=== PATIENT | female | born 1950 | race Caucasian/White ===

== ENCOUNTER 2016-04-23 07:18 | Inpatient (IN) | payer MEDICARE, OTHER ==
--- NOTE | 2016-04-12 21:49 | HP ---
PREOPERATIVE HISTORY AND PHYSICAL: DATE OF ADMISSION: This patient is scheduled for AA admission by Dr. Sebastian, 04/23/16. DATE OF PREOPERATIVE HISTORY AND PHYSICAL EXAMINATION: , 04/11/16. ATTENDING SURGEON: Dr. Talon Sebastian (dictated by Miracle Abdullahi NP). CHIEF COMPLAINT: Morbid obesity. HISTORY OF PRESENT ILLNESS: The patient is a 65-year-old female with a body mass index of 47.5 and comorbidities of type 2 diabetes, hypertension, hyperlipidemia, GERD, osteoarthritis with chronic neck and shoulder pain. She has a longstanding history of obesity and is seeking bariatric surgery as a more permanent solution to her obesity and related comorbidities. She has completed medically supervised weight loss as well as the preoperative diagnostic testing and evaluations and has been deemed an appropriate candidate by Dr. Sebastian to proceed with laparoscopic Paul-en-Y gastric bypass. Dr. Sebastian discussed the nature of the surgical procedure, the relevant risks, benefits, and alternatives and today, I reviewed the typical hospitalization and expected postoperative care and recovery including compliance with the stages of the postoperative diet, exercise, vitamin and mineral supplementation , and followup visits at [facility] and [facility]. The patient has had a chance to ask questions and stated that she understands the information and is satisfied with the answers given to her questions. She will sign surgical consent on the day of surgery. PAST MEDICAL HISTORY: Significant for type 2 diabetes, hypertension, GERD, osteoarthritis with chronic neck and shoulder pain, hyperlipidemia and recurrent diverticulitis and obstructive sleep apnea that is untreated at this time. PAST SURGICAL HISTORY: 1. Hysterectomy, 1996. 2. Laparoscopic cholecystectomy, 2003. 3. Bladder surgery, 2008 and 2012. 4. Right carpal tunnel release, 2013. 5. Bilateral cataract extraction, 2015. 6. Left knee arthroscopy, 2008. MEDICATIONS: 1. Gabapentin 300 mg t.i.d. 2. TriCor 145 mg daily in the morning. 3. Sertraline 150 mg p.o. daily in the morning. 4. Lisinopril/hydrochlorothiazide 20/25 mg p.o. daily in the morning. 5. Pantoprazole 40 mg p.o. daily in the morning. 6. Bupropion 300 mg p.o. daily. 7. Myrbetriq 25 mg daily in the morning. 8. Oxybutynin 10 mg p.o. b.i.d. 9. Crestor 20 mg p.o. daily. 10. Bydureon 2 mg injection weekly on Wednesdays and the patient was instructed by her primary care provider to hold that medication as of 04/08/16 while she is on the preoperative diet; she also takes acetaminophen 650 mg as needed for arthritis pain. 11. Vitamin B12 500 mcg daily. 12. Vitamin D3 1000 International Units daily. 13. Flintstones vitamin with calcium daily. ALLERGIES: She has multiple medication allergies. KEFLEX, ZITHROMAX, PENICILLIN, ROCEPHIN, BACTRIM, and SULFA have caused either hives or vomiting. She has also had unspecified reactions to ELAVIL, OXYCODONE, CHANTIX, and LATEX , but she states that she has tolerated morphine. FAMILY HISTORY: Father had a history of Crohn's disease and subsequently colon cancer. No known anesthesia complications, bleeding tendencies, or clotting disorders in the family. SOCIAL HISTORY: She is . She rarely drinks alcohol. She quit smoking, 02/26/16, after smoking 1 to 2 packs of cigarettes a day since age 16. She has been disabled since 2003. 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 REVIEW OF SYSTEMS: She denies any history of myocardial infarction; she denies any chest pain or pressure or palpitations; she states that she had a DVT in the right upper extremity after the right carpal tunnel release in 2013; she denies any history of pulmonary embolism. She quit smoking on 02/26/16; she denies any recent upper respiratory infection. She denies any previous anesthesia complications. She has a history of GERD and she underwent a preoperative upper endoscopy, which revealed antral gastritis and bile reflux without anatomic abnormalities. She has a history of benign colon polyps and recurrent diverticulitis. She denies any current diarrhea or constipation and is typically on a fiber supplement. She denies any dysuria. She is a type 2 diabetic and her fingerstick blood sugar typically in the morning is 100. She was diagnosed with obstructive sleep apnea, but did not follow up and has not been on CPAP and Dr. Sebastian is aware. She denies any bleeding tendencies and has never received a blood transfusion. PHYSICAL EXAMINATION GENERAL SURVEY: The patient is a 65-year-old morbidly obese female, in no acute distress. VITAL SIGNS: Height 63 inches, weight 268 pounds, body mass index 47.5, blood pressure 138/86, pulse 76 and regular, respiratory rate 20, temperature 98.4 tympanic. HEENT: Benign. NECK: Supple. No cervical lymphadenopathy. No carotid bruits. Trachea is midline. Neck circumference 68 inches. LUNGS: Breath sounds bilaterally clear and equal. HEART: Regular rate and rhythm. No murmurs or rubs appreciated. ABDOMEN: Obese with active bowel sounds. Soft and nondistended. Multiple well - healed surgical scars. No obvious masses, organomegaly, or ventral hernias, but exam is limited by body habitus. EXTREMITIES: Warm without edema or skin ulcerations. PELVIC AND RECTAL: Exams deferred. NEUROLOGIC: Alert and oriented x3. Steady gait. SKIN: Warm, dry, intact. IMPRESSION: Morbid obesity. PLAN: AA admission to Dr. Sebastian' service on 04/23/16, for laparoscopic Paul-en-Y gastric bypass. CC: Dr. Hudson* GISSEL ABDULLAHI, FOOD COUNSELOR [id number]/[facility] #: [id number] MTDLevon
[~2016-04-23 07:18] MED LIST: Buffered Lidocaine 1% SYR 3ML* 3 ML/SYR SYRINGE INTRADERM ONE
[2016-04-23] MEDS ORDERED: Ciprofloxacin 400MG IVPREMIX(* 400 MG/200 ML BAG ONE (08:14)
[2016-04-23] MEDS ORDERED: Clindamycin 900 MG IVPREMIX(* 900 MG/50 ML SDV IV ONE (08:14)
[2016-04-23] MEDS ORDERED: Buffered Lidocaine 1% SYR 3ML* 3 ML/SYR SYRINGE ONE (08:15)
[2016-04-23] MEDS ORDERED: Heparin VIAL(*) 5000 UNITS/ML VIAL (FIVE THOUSAND) ONE (08:23)
[2016-04-23] MEDS ORDERED: fentaNYL* 50 MCG/ML 2 ML VIAL (100 MCG VIAL) ONE ×5 (10:20→16:01)
[2016-04-23] MEDS ORDERED: Midazolam* 1 MG/ML 2 ML VIAL (2 MG) ONE ×2 (10:20→10:55)
[2016-04-23] MEDS ORDERED: Methylene Blue 1%* 10 ML VIAL ONE (10:23)
[2016-04-23] MEDS ORDERED: Bupivacaine 0.5% W/EPI SDV* 30 ML VIAL ONE (10:24)
[2016-04-23] MEDS ORDERED: Cisatracurium* 2 MG/ML MDV 10 ML ONE (10:55)
[2016-04-23] MEDS ORDERED: Propofol* 10 MG/ML 20 ML BTL IV PUSH ONE (11:19)
[2016-04-23] MEDS ORDERED: Lidocaine 2% MPF* 2 ML VIAL ONE (11:19)
[2016-04-23] MEDS ORDERED: Succinylcholine* 20 MG/ML 10 ML VIAL ONE (11:19)
[2016-04-23] MEDS ORDERED: Famotidine IV* 10 MG/ML 2 ML (20 mg) ONE (11:19)
[2016-04-23] MEDS ORDERED: Dexamethasone IV* 4 MG/ML 1 ML (4 MG) ONE (11:19)
[2016-04-23] MEDS ORDERED: Ondansetron INJ* 2 MG/ML VIAL IV PRN ×2 (11:47→20:07)
[2016-04-23] MEDS ORDERED: DiMENhydriNATE IV* 50 MG/ML VIAL IV PUSH PRN (11:47)
[2016-04-23] MEDS ORDERED: PROCHLORPERAZINE INJ 5 MG/ML 2 ML VIAL IV PRN (11:47)
[2016-04-23] MEDS ORDERED: Desflurane* 240 ML INH ONE (12:41)
[2016-04-23] MEDS ORDERED: Ondansetron INJ* 2 MG/ML VIAL ONE (13:32)
[2016-04-23] MEDS ORDERED: HYDROmorphone INJ* 1 MG/ML CARPUJECT SYRINGE IV PRN (13:44)
[2016-04-23] MEDS ORDERED: HYDROmorphone INJ* 1 MG/ML CARPUJECT SYRINGE ONE (14:00)
[2016-04-23] MEDS: fentaNYL* 50 MCG/ML 2 ML VIAL (100 MCG VIAL) IV PRN ×5 (14:03→16:02)
[2016-04-23] MEDS: HYDROmorphone INJ* 1 MG/ML CARPUJECT SYRINGE IV PRN ×7 (14:10→22:52)
[2016-04-23] MEDS ORDERED: DiMENhydriNATE IV* 50 MG/ML VIAL ONE (15:20)
[2016-04-23] MEDS: Heparin VIAL(*) 5000 UNITS/ML VIAL (FIVE THOUSAND) SUBCUT SCH ×2 (16:49→22:40)
[2016-04-23] MEDS: Ketorolac INJ* 30 MG/ML 1 ML VIAL IV PRN (16:59)
[2016-04-23] MEDS: Nicotine Patch Removal NOTE PATCH OFF SCH (22:40)
[2016-04-24] MEDS: Heparin VIAL(*) 5000 UNITS/ML VIAL (FIVE THOUSAND) SUBCUT SCH ×3 (05:32→21:52)
[2016-04-24] MEDS: Ketorolac INJ* 30 MG/ML 1 ML VIAL IV PRN ×2 (07:53→14:22)
[2016-04-24] MEDS: Nicotine PATCH 21 MG/24 HR* PATCH TRANSDERM SCH (08:41)
[2016-04-24] MEDS ORDERED: Pantoprazole IV* 40 MG IV SCH (09:00)
[2016-04-24] MEDS: HYDROmorphone INJ* 1 MG/ML CARPUJECT SYRINGE IV PRN ×4 (11:22→21:54)
--- NOTE | 2016-04-24 12:01 | PN ---
Progress Note - Progress Note SOAP: Subjective: Minimal pain. No N/V. Has been walking. Objective: AVSS NAD Abd: incis c/d/i; RAI ss drainage. Soft. Minimal tenderness. Laboratory Results - last 24 hr 04/23/16 04/23/16 15:34 21:31 POC Glucose (mg/dL) 137 H 151 H Assessment: POD#1 s/p LRYGB. Doing well. Plan: Adv diet. D/c rendon. Ambulate. Nutrition consult. Home in AM if doing well. Remove RAI prior to d/c.
[2016-04-24] MEDS: D5W 1/2 NS KCl 20 Meq 1000 ML* 1,000 ML IV SCH ×2 (12:47→21:49)
--- NOTE | 2016-04-24 12:50 | PN ---
Progress Note - Progress Note SOAP: Subjective: Feeling well, no complaints ambulating rendon removed this am- has not yet urinated since no flatus or BM started joey clears this am- tolerating sips of clear liq denies f/c, cp, sob, n/v Objective: A&Ox3, NAD, VSS, afebrile, on 5L O2 via NC Heart: RRR no m/r/g Lungs: Poor aeration throughout, some wheezes abd: Soft, non-distended, obese hypoactive BS incisions covered with dressings, not removed RAI x1 intact to LUQ, serosang drainage in bulb moderate tenderness to palpation in epigastrium, LUQ no guarding Extr: calves NT to palpation, SCDs in place Vital Signs Temp 98.4 F 04/24/16 12:45 Pulse 81 04/24/16 12:45 Resp 18 04/24/16 12:45 BP 127/59 04/24/16 12:45 Pulse Ox 94 04/24/16 12:45 Intake & Output 04/23/16 04/24/16 18:59 06:59 Intake Total 2700 1897 Output Total 55 490 Balance 2645 1407 Weight 271 lb 6.4 oz Intake: IV Fluids 2700 1897 LR 1897 Lactated Ringer's 2700 Oral 0 0 Output: RAI #1 55 15 Rendon 475 Assessment/ Plan: Pt is a 65 yo F POD#1 S/P Laparoscopic RYGB who is currently doing well. O2 sats- encourage incentive spirometer use, ambulation titrate off O2 via NC will discuss sleep study report with (records coming from ) Hx of untreated sleep apnea capnography while asleep, pulse ox on when awake joey clears ambulate begin PO: Mybetriq Oxybutinin Wellbutrin Sertraline omeprazole Hold gabapentin for now con't FSBGs poss D/C tomorrow
[2016-04-24] MEDS ORDERED: Mirabegron (NF) 25 MG TAB PO SCH (13:00)
[2016-04-24] MEDS: Omeprazole CAP* 20 MG PO SCH (13:04)
[2016-04-24] MEDS: Oxybutynin XL TAB* 5 MG PO SCH (13:04)
[2016-04-24] MEDS: Sertraline* 100 MG TAB PO SCH (13:05)
[2016-04-24] MEDS: BuPROPion XL* 150 MG TAB.XL PO SCH (14:56)
[2016-04-24 18:19] LABS: Hematocrit 33 % (35-47); Hemoglobin 10.8 g/dl (12.0-16.0); Mean Corpuscular HGB Conc 33 g/dl (31-36); Mean Corpuscular Hemoglobin 30 pg (27-31); Mean Corpuscular Volume 91 fL (80-97); Mean Platelet Volume 10 um3 (7.4-10.4); Red Blood Count 3.65 10^6/ul (4.0-5.4); Red Cell Distribution Width 14 % (10.5-15); White Blood Count 9.9 10^3/ul (3.5-10.8)
[2016-04-24 18:36] LABS: Calcium 9.2 mg/dL (8.6-10.3); EGFR African American 58.9 (>60); EGFR Non-African American 45.8 (>60); Potassium 3.6 mmol/L (3.5-5.0)
[2016-04-24] MEDS ORDERED: ESTRADIOL VAG CM VAGINAL SCH (21:00)
[2016-04-24] MEDS: Nicotine Patch Removal NOTE PATCH OFF SCH (22:16)
[2016-04-25] MEDS: HYDROmorphone INJ* 1 MG/ML CARPUJECT SYRINGE IV PRN ×2 (01:08→06:01)
--- NOTE | 2016-04-25 02:57 | OP ---
OPERATIVE REPORT: DATE OF OPERATION: 04/23/16 - SSU 352-01 DATE OF : 54 SURGEON: Talon Sebastian MD HOME SUPPORT WORKER: Dr. Segura. ANESTHESIOLOGIST: Dr. Lau. ANESTHESIA: General endotracheal. PRE-OP DIAGNOSIS: Morbid obesity. POST-OP DIAGNOSIS: Morbid obesity. OPERATIVE PROCEDURE: Laparoscopic Paul-en-Y gastric bypass. ESTIMATED BLOOD LOSS: Minimal. IV FLUID: Crystalloid. SPECIMEN: None . DRAINS: A 10 mm Chidi-Negron. COMPLICATIONS: None. COUNTS: Instrument, needle and sponge counts were correct. DESCRIPTION OF PROCEDURE: The patient was brought to the operating room, placed on table supine. Sequential compression devices were placed on both lower extremities. General anesthesia was administered. A Mcdaniel catheter was placed. The abdomen was prepped and draped in the usual sterile fashion. Appropriate antibiotics were administered. A time-out was performed. Local anesthetic was infiltrated into the skin and soft tissue prior to making each incision. Entry to the abdomen was through a left upper quadrant incision accommodating a 12 mm optical trocar. After accessing the peritoneal cavity, carbon dioxide was insufflated to a pressure of 15 mmHg. Under direct visualization, a 12 mm bladeless trocar was placed in the right upper quadrant, also in the supraumbilical midline. The 5 mm bladeless trocars were placed in the right upper quadrant medially and left upper quadrant laterally. A Ofelia liver retractor was placed percutaneously in the subxiphoid position and used to elevate the left lobe of the liver. Adhesiolysis was performed freeing omentum from the anterior abdominal wall. The patient was noted to have previous umbilical hernia mesh in place. After freeing, the omentum was retracted superiorly. The omentum was split down the midline in order to create a path for the Paul limb. The gastric pouch was fashioned first by dissecting along the left richelle of the diaphragm to expose this. Then a perigastric dissection was undertaken in the lesser curvature in order to enter the lesser sac and then with several firings of the Endo YRIS stapler with glaser cartridges, a gastric pouch was created of approximately 20 mL volume. After assuring hemostasis on the staple lines, the ligament of Treitz was identified. The bowel was measured out 40 cm and it was tacked to the left lateral edge of the gastric pouch with interrupted 3-0 silk sutures. YRIS stapled anastomosis was performed to create the gastrojejunostomy in the antecolic, antegastric fashion. The common gastroenterotomy was closed with 3-0 Maxon running over a 36-Ukrainian gastric lavage tube. Lastly, the loop of bowel was divided to the left side of the anastomosis to complete the gastrojejunostomy. The anastomosis was then tested with methylene blue dye solution, instilled through the orogastric tube and no leak was identified. The Paul limb was then measured out for 75 cm at which point, a functional end- to-side jejunojejunostomy was created with the Endo YRIS stapler with a glaser 60 mm cartridge. Again, the common enterotomy was run close with 3-0 Maxon. A 3- 0 silk was used in running locking fashion to close the mesenteric defect. A 7 mm Chidi-Negron drain was placed into the abdominal cavity and withdrawn through the left upper quadrant 5-mm trocar site. The drain was placed posterior and to the left side of the gastrojejunal anastomosis and it was sutured to the skin with 3-0 Surgipro. It was placed to suction bulb. All trocars were removed under direct visualization. Carbon dioxide was released. The skin was closed with mark and dressings were applied. The patient was extubated uneventfully and transferred to the recovery room in stable condition. CC: Agueda Hudson MD* [id number]/[facility] #: [id number] DANIKA
[2016-04-25] MEDS: Heparin VIAL(*) 5000 UNITS/ML VIAL (FIVE THOUSAND) SUBCUT SCH (06:01)
[2016-04-25] MEDS: D5W 1/2 NS KCl 20 Meq 1000 ML* 1,000 ML IV SCH (07:10)
[2016-04-25 07:37] VITALS: BP 128/64
[2016-04-25 07:51] LABS: Hematocrit 32 % (35-47); Hemoglobin 10.5 g/dl (12.0-16.0); Mean Corpuscular HGB Conc 33 g/dl (31-36); Mean Corpuscular Hemoglobin 31 pg (27-31); Mean Corpuscular Volume 92 fL (80-97); Mean Platelet Volume 10 um3 (7.4-10.4); Red Blood Count 3.44 10^6/ul (4.0-5.4); Red Cell Distribution Width 14 % (10.5-15); White Blood Count 10.8 10^3/ul (3.5-10.8)
[2016-04-25 08:06] LABS: BUN/Creatinine Ratio 18.4 (8-20); Calcium 8.8 mg/dL (8.6-10.3); EGFR African American 69.6 (>60); EGFR Non-African American 54.1 (>60)
[2016-04-25] MEDS: Omeprazole CAP* 20 MG PO SCH ×2 (09:19→09:37)
[2016-04-25] MEDS: BuPROPion XL* 150 MG TAB.XL PO SCH ×2 (09:19→09:37)
[2016-04-25] MEDS: Sertraline* 100 MG TAB PO SCH ×2 (09:20→09:37)
[2016-04-25] MEDS: Oxybutynin XL TAB* 5 MG PO SCH ×2 (09:20→09:38)
[2016-04-25] MEDS: Nicotine PATCH 21 MG/24 HR* PATCH TRANSDERM SCH (09:38)
[2016-04-25] MEDS ORDERED: HYDROcodone/ACET. 7.5/325 LIQ* 15 ML UDC PO PRN (09:49)
--- NOTE | 2016-04-25 09:57 | PN ---
Progress Note - Progress Note Note: S: POD #2. Doing well (seen earlier by Dr. Sebastian). Has only had Dilaudid IV for pain (though thinks she will do well with her usual Gabapentin). Sylvia joey clears. No N/V or regurg. O: Tmax 100.2 Vital Signs - 8 hr 04/25/16 04/25/16 04/25/16 02:08 03:53 06:01 Temperature 99.9 F Pulse Rate 90 Respiratory 18 20 18 Rate Blood Pressure 152/85 (mmHg) O2 Sat by Pulse 94 Oximetry 04/25/16 04/25/16 04/25/16 07:01 07:28 08:00 Temperature 97.8 F Pulse Rate 85 Respiratory 18 18 18 Rate Blood Pressure 128/64 (mmHg) O2 Sat by Pulse 95 Oximetry Intake and Output Last 24 Hours 04/23/16 04/24/16 04/25/16 04/26/16 06:59 06:59 06:59 06:59 Intake Total 4597 4413 Output Total 545 1343 10 Balance 4052 3070 -10 Weight 271 lb 6.4 oz Intake: IV Fluids 4597 3432 D5W 1/2 NS 20 meq KCL 1940 LR 1897 1492 Lactated Ringer's 2700 IVPB 501 LR 501 Oral 0 480 Output: RAI #1 70 93 10 Urine 825 Mcdaniel 475 425 Heart: reg; distant heart tones Lungs: clear Abd: +BS; Lap incisions ok; RAI: serosang (d/c'd w/o incident; DSD placed) Labs reviewed A/P: s/p lap RYGB, doing well overall. Will be able to go home later today if pain is controlled w/ po meds. Instructions reviewed. Office f/u 1 wk.
[2016-04-25] MEDS ORDERED: Gabapentin CAP(*) 300 MG PO SCH (10:00)
--- NOTE | 2016-04-26 03:54 | DS ---
DISCHARGE SUMMARY: DATE OF ADMISSION: 04/23/16 DATE OF DISCHARGE: 04/25/16 ATTENDING SURGEON: Dr. Talon Sebastian. HOSPITAL COURSE: Please refer to admission history and physical for admission details. The patient was taken to the operating room on 04/23/16 and underwent laparoscopic Paul-en-Y gastric bypass. Surgery was otherwise uneventful. A Chidi-Negron drain was left in place. Postoperatively, her course was notable for low oxygen saturations, which had improved significantly by the morning of discharge (normal on room air). She also had low urine output requiring IV fluid bolus. As of the morning of discharge, her pain was controlled, though only on IV Dilaudid (she did not have any orders yet for oral analgesics) and she is tolerating bariatric clear liquids well. She was seen earlier by Dr. Sebastian. PHYSICAL EXAMINATION: As of the morning of discharge, T-max 100.2, current temperature 97.8, blood pressure 128/64, pulse 85, respirations 18, room air saturation 91% to 92%. General: Well-nourished, morbidly obese female, in no acute distress. She appears comfortable. Heart: Regular rate and rhythm, though heart tones are distant. Lungs: Clear to auscultation. No rales or wheezes. Abdomen: Laparoscopic incision sites look fine. Bowel sounds are present. Abdomen: Soft with tenderness primarily in the left upper quadrant. The remainder is nontender. Chidi-Negron drain with serosanguineous drainage. This was removed without incidence and a dry sterile dressing placed. ASSESSMENT: Status post laparoscopic Paul-en-Y gastric bypass, doing well. PLAN: Home today pending adequate pain control with oral analgesics and resumption of her usual gabapentin. She has a followup with our office on 05/[address] Sebastian. KE PACHECO CC: Harpreet Nettles* [id number]/[facility] #: [id number] MTDD
== END 2016-04-25 11:50 | disposition home or self-care (01) | DRG 621 ==
LOC: AA 07:18 → SSU 16:32
PROVIDERS: ADMIT Surgery; ATTEND Surgery
PROC: 0D164ZA Bypass Stomach to Jejunum, Percutaneous Endoscopic Approach (ICD-10-PCS; principal; 2016-04-23 09:30)
DX: E66.01 Morbid (severe) obesity due to excess calories (principal); I10 Essential (primary) hypertension; E11.9 Type 2 diabetes mellitus without complications; E78.5 Hyperlipidemia, unspecified; K21.9 Gastro-esophageal reflux disease without esophagitis; M19.90 Unspecified osteoarthritis, unspecified site; G89.29 Other chronic pain; M54.2 Cervicalgia; M25.519 Pain in unspecified shoulder; G47.33 Obstructive sleep apnea (adult) (pediatric); Z68.42 Body mass index [BMI] 45.0-49.9, adult; Z90.710 Acquired absence of both cervix and uterus; Z98.42 Cataract extraction status, left eye; Z98.41 Cataract extraction status, right eye; Z88.0 Allergy status to penicillin; Z88.1 Allergy status to other antibiotic agents; Z88.2 Allergy status to sulfonamides; Z88.8 Allergy status to other drugs, medicaments and biological substances; Z88.5 Allergy status to narcotic agent; Z91.040 Latex allergy status; Z80.0 Family history of malignant neoplasm of digestive organs; Z87.891 Personal history of nicotine dependence
CPT/HCPCS: 36415; 80048; 85025; 94760; A9270-GY; C1776; J0330; J0744; J1100; J1170; J1240; J1644; J1885; J2250; J2405; J2704; J3010

== ENCOUNTER 2016-07-14 09:48 | Emergency (ER) | payer MEDICARE, OTHER ==
[2016-07-14 11:01] VITALS: BP 154/82
--- NOTE | 2016-07-14 11:40 | UC ---
Lower Extremity/Ankle HPI - HPI Summary HPI Summary: got a bug bite yesterday on her left ankle, has redness surrounding that. Then this am had redness and excruciating pain in her left great toe radiating to her left second toe. No hx gout. No fever. Is on gabapentin for chronic knee and hip pain. Has multiple antibiotic allergies. - History of Current Complaint Chief Complaint: UCLowerExtremity Stated Complaint: LEFT FOOT Time Seen by Provider: 07/14/16 11:37 Hx Obtained From: Patient Hx Last Menstrual Period: about age 40s Onset/Duration: Gradual Onset, Lasting Days, Still Present Severity Initially: Moderate Severity Currently: Severe Pain Intensity: 8 Pain Scale Used: 0-10 Numeric Aggravating Factor(s): Standing, Ambulation Alleviating Factor(s): Nothing Able to Bear Weight: Yes - with pain - Risk Factors Gout Risk Factors: Diabetes, Hypertension, Obesity Septic Arthritis Risk Factor: Negative - Allergies/Home Medications Allergies/Adverse Reactions: Allergies Allergy/AdvReac Type Severity Reaction Status Date / Time Amitriptyline [From Elavil] Allergy Unknown Rash And Verified 04/23/16 08:19 Itching Azithromycin [From Zithromax] Allergy Unknown Vomiting Verified 04/23/16 08:19 Ceftriaxone [From Rocephin] Allergy Unknown Rash And Verified 04/23/16 08:19 Itching Cephalexin [From Keflex] Allergy Unknown Rash And Verified 04/23/16 08:19 Itching Darifenacin Allergy Unknown Rash And Verified 04/23/16 08:19 [From Enablex 15mg] Itching Latex Allergy Unknown Rash Verified 04/23/16 08:19 Nitrofurantoin Allergy Unknown Rash And Verified 04/23/16 08:19 Itching Oxycodone [From Endocet] Allergy Unknown Vomiting Verified 04/23/16 08:19 Penicillins Allergy Unknown vomiting, Verified 04/23/16 08:19 fever Varenicline [From Chantix] Allergy Unknown Rash from Verified 04/23/16 08:19 head to toe, Nausea, Vomiting Methenamine Allergy Rash Verified 04/23/16 08:19 Sulfa Antibiotics Allergy Rash Verified 07/14/16 10:46 Sulfamethoxazole Allergy Rash on Verified 04/23/16 08:19 w/Trimethoprim hands [From Bactrim] Home Medications: Home Medications Calcium Citrate TAB* [Citracal TAB*] 1 tab PO BID 07/14/16 [History Confirmed ] PMH/Surg Hx/FS Hx/Imm Hx Endocrine History Of: Reports: Diabetes Cardiovascular History Of: Reports: Cardiac Disorders - ANGINA, Hypertension Denies: Pacemaker/ICD Respiratory History Of: Denies: COPD, Asthma GI/ History Of: Denies: Renal Disease Psychological History Of: Reports: Anxiety - CONTROL WITH MEDS, Depression - Surgical History Surgical History: Yes Surgery Procedure, Year, and Place: 1996 hysterectomy [facility]. 2010 colecystectomy [facility]. 2008 left knee surgery, [facility]. 01/2009 Bladder repair. with sling. [facility]. 02/2009 BLADDER SLING REMOVED [facility]. 2011 & 2012 BLADDER SURGERY [place]. RIGHT ULNAR NERVE LESION, RIGHT CARPAL DACIA, 12/14/13. [facility] CATARACT[facility]. Right ARM BLOOD CLOT. Gastric Bipass Surgery 04/23/16 - Family History Known Family History: Positive: Other - no known hx gout - Social History Lives: With Family Alcohol Use: Rare Alcohol Amount: FEW DRINKS/YEAR Substance Use Type: None Smoking Status (MU): Former Smoker Type: Cigarettes Amount Used/How Often: 1PPD 45 YRS Length of Time of Smoking/Using Tobacco: 45 YEARS Have You Smoked in the Last Year: Yes When Did the Patient Quit Smoking/Using Tobacco: 02/26/2016 Household Exposure Type: Cigarettes - Immunization History Most Recent Influenza Vaccination: 2016 Most Recent Tetanus Shot: UNKNOWN Most Recent Pneumonia Vaccination: 2016 Review of Systems Constitutional: Negative Skin: Other - redness left great toe and swelling and redness surrounding insect bite, left lat malleolus Motor: Negative Neurovascular: Negative Musculoskeletal: Arthralgia Neurological: Negative Psychological: Negative All Other Systems Reviewed And Are Negative: Yes Physical Exam Triage Information Reviewed: Yes Appearance: Ill-Appearing, Pain Distress, Obese Vital Signs: Initial Vital Signs Temp 98.2 F 07/14/16 10:54 Pulse 74 07/14/16 10:54 Resp 16 07/14/16 10:54 BP 154/82 07/14/16 10:54 Pulse Ox 99 07/14/16 10:54 elevated BP noted Vital Signs Reviewed: Yes Eyes: Positive: Conjunctiva Clear ENT: Positive: Normal ENT inspection Neck: Positive: Supple Respiratory: Positive: No respiratory distress Cardiovascular: Positive: RRR, Pulses Normal, Brisk Capillary Refill Musculoskeletal: Positive: Strength Intact, ROM Intact, Other: - painful even to lightly touch left great toe. Neurological: Positive: Alert, Muscle Tone Normal Psychological Exam: Normal Skin: Positive: Other - insect bite left lat malleolus with 1cm surrounding redness, faint redness left great toe but not on skin between ankle and left great toe. Swelling left great toe and foot, no swelling or bony tenderness of left ankle Lower Extremity Course/Dx - Course Course Of Treatment: diff dx cellulitis vs gout. Will treat for both. Pt states she can take ibuprofen despite recent gastric bypass surg so will try indocin for pain. Multiple allergies and hx DM noted. Pt states DM is better now after the bypass surg. Will give indocin and doxycylcine. Pt denies possibility of a tick bite. States she was bitten while doing laundry indoors. Advise definite follow up in 2 days. - Differential Dx/Diagnosis Differential Diagnosis/HQI/PQRI: Arthritis, Cellulitis, Gout, Infection, Sprain , Strain Provider Diagnoses: cellulitis. acute gout Discharge - Discharge Plan Condition: Stable Disposition: HOME Prescriptions: DOXYcycline CAP(*) [DOXYcycline 100MG CAP(*)] 100 mg PO BID #20 cap Indomethacin CAP* [Indocin CAP*] 50 mg PO TID PRN #30 cap PRN Reason: Pain Patient Education Materials: Cellulitis (ED), Low Purine Diet (ED), Gout (ED) Referrals: Agueda Hudson MD [Primary Care Provider] - 2 Days (regarding today's visit and your elevated blood pressure )
== END 2016-07-14 12:20 | disposition home or self-care (01) ==
LOC: UCCORT 09:48
DX: L03.116 Cellulitis of left lower limb (principal); M10.072 Idiopathic gout, left ankle and foot; E66.9 Obesity, unspecified; F41.9 Anxiety disorder, unspecified; Z88.1 Allergy status to other antibiotic agents; Z88.0 Allergy status to penicillin; Z88.2 Allergy status to sulfonamides; Z88.8 Allergy status to other drugs, medicaments and biological substances; Z90.49 Acquired absence of other specified parts of digestive tract; Z98.84 Bariatric surgery status; Z98.42 Cataract extraction status, left eye; Z98.41 Cataract extraction status, right eye; Z87.891 Personal history of nicotine dependence
CPT/HCPCS: 99212; G0463

== ENCOUNTER 2016-09-01 12:05 | Inpatient (IN) | payer MEDICARE, OTHER ==
[2016-09-01] MEDS ORDERED: Ondansetron INJ* 2 MG/ML VIAL IV ONE ×3 (12:33→14:17)
[2016-09-01] MEDS ORDERED: Morphine INJ* 4 MG/ML 1 ML SYRINGE IV ONE ×2 (12:58→15:42)
[2016-09-01] MEDS: NS 0.9% 1000 ML* 2,000 ML IV ONE ×2 (13:05→14:11)
[2016-09-01 13:35] LABS: Hematocrit 44 % (35-47); Hemoglobin 14.5 g/dl (12.0-16.0); Mean Corpuscular HGB Conc 33 g/dl (31-36); Mean Corpuscular Hemoglobin 30 pg (27-31); Mean Corpuscular Volume 90 fL (80-97); Mean Platelet Volume 11 um3 (7.4-10.4); Red Blood Count 4.92 10^6/ul (4.0-5.4); Red Cell Distribution Width 14 % (10.5-15); White Blood Count 17.5 10^3/ul (3.5-10.8)
[2016-09-01 13:39] LABS: Albumin 3.4 g/dL (3.2-5.2); BUN/Creatinine Ratio 14.8 (8-20); C Reactive Protein 26.65 mg/L (< 5.00); Calcium 9.4 mg/dL (8.6-10.3); EGFR African American 127.4 (>60); EGFR Non-African American 99.1 (>60); Globulin 4.1 g/dL (2-4); Magnesium 1.6 mg/dL (1.9-2.7); Total Bilirubin 0.5 mg/dL (0.2-1.0); Total Protein 7.5 g/dL (6.4-8.9)
[2016-09-01 13:41] LABS: Troponin I 0.01 ng/mL (<0.04)
[2016-09-01 13:43] LABS: Potassium 2.7 mmol/L (3.5-5.0)
[2016-09-01 14:15] LABS: TSH (Thyroid Stimulating Horm) 1.04 mcIU/mL (0.34-5.60)
[2016-09-01 14:20] LABS: Urine Bacteria 1+ (Absent); Urine Bilirubin Negative (Negative); Urine Glucose Negative (Negative); Urine Nitrite Negative (Negative)
[2016-09-01] MEDS ORDERED: Iohexol 300* (CONTRAST) 10 ML SDV IV ONE (14:39)
--- NOTE | 2016-09-01 15:39 | RAD ---
INDICATION: Abdominal pain, history of gastric bypass. COMPARISON: Comparison is made with a prior CT of the abdomen and pelvis from August 16, 2016. TECHNIQUE: A CT scan of the abdomen and pelvis was performed with intravenous and oral contrast following intravenous injection of 133 ml of Omnipaque 300 nonionic contrast. Contiguous axial sections were obtained from the lung bases through the symphysis pubis. Images were reconstructed in the coronal and sagittal planes. FINDINGS: The lung bases are clear. No pleural effusion is present. The liver is mildly enlarged and decreased in attenuation consistent with fatty infiltration. The patient is status post cholecystectomy. The spleen is within normal limits in size. The pancreas appears to be within normal limits. The kidneys and adrenal glands are normal in size. No hydronephrosis is seen. There is a 2.5 cm exophytic left renal cyst arising from the midportion of the kidney. In addition there is a small 0.5 cm fatty density lesion arising from the upper pole of the left kidney most consistent with a small angiomyolipoma. These are unchanged from the prior study. The aorta is normal in caliber with moderate calcific plaque present. No significant enlarged retroperitoneal lymph nodes are seen. The patient is status post Paul-en-Y gastric bypass surgery. The excluded stomach is nondistended. The jejunojejunostomy appears grossly within normal limits. The small bowel and colon appear nondistended. The appendix appears to be within normal limits. In the left upper quadrant there is focal thickening of the wall of the distal transverse colon with stranding in the mesenteric fat and associated diverticuli most consistent with diverticulitis. This appears slightly proximal to the area noted on the prior exam although may represent the same area with a mobile colon. The inflammatory change appears slightly more prominent than on the prior study. No abscess is seen. Again note is made of thickening of the wall of the sigmoid colon as noted previously recommend colonoscopy for further evaluation. The patient is status post hysterectomy. No free intraperitoneal air or fluid is seen. No significant focal osseous abnormality is seen. IMPRESSION: 1. FINDINGS MOST CONSISTENT WITH DIVERTICULITIS INVOLVING THE DISTAL TRANSVERSE COLON. THIS APPEARS SLIGHTLY MORE PROXIMAL TO THE REGION OF DIVERTICULITIS NOTED PREVIOUSLY ALTHOUGH MAY REPRESENT THE SAME AREA ASSUMING SLIGHT DIFFERENCES IN POSITIONING OF THE COLON. THIS APPEARS TO HAVE PROGRESSED SLIGHTLY FROM THE PRIOR STUDY. NO ABSCESS IS PRESENT. 2. THICKENING OF THE WALL OF THE SIGMOID COLON, UNCHANGED RECOMMEND COLONOSCOPY FOR FURTHER EVALUATION PREVIOUSLY NOTED. 3. MILD HEPATOMEGALY AND HEPATIC STEATOSIS. 4. STATUS POST GASTRIC BYPASS SURGERY, CHOLECYSTECTOMY AND HYSTERECTOMY.
[2016-09-01] MEDS ORDERED: metroNIDAZOLE IV 500 MG/100ML* 100 ML IVPB ONE (15:44)
--- NOTE | 2016-09-01 15:48 | ED ---
Vernon Veronica Janilya, scribed for Felipe Jenkins MD on 09/01/16 at 1245 . Abdominal Pain/Female - HPI Summary HPI Summary: A 65 y/o female came in to [facility] presenting w/ a gradual onset of constant lower abd pain starting Friday, 08/30. At times, severity rated 5/10, but when it is worst, it is rated above 10/10. She was referred here by Dr. Sebastian. Pt reports n/v/d, blood in stool of bright red color, fever, chills. This morning, her Sx started at 0300. PMHx gastric bypass in April, diverticulitis. - History of Current Complaint Chief Complaint: EDAbdPain Stated Complaint: VOMITING, PAIN, DIARRHEA Time Seen by Provider: 09/01/16 12:32 Hx Obtained From: Patient Hx Last Menstrual Period: about age 40s Onset/Duration: Gradual Onset, Lasting Days, Still Present Timing: Constant Severity Initially: Moderate Severity Currently: Moderate Pain Intensity: 8 Pain Scale Used: 0-10 Numeric Location: Other - lower abd pain Radiates: No Aggravating Factor(s): Nothing Alleviating Factor(s): Nothing Associated Signs and Symptoms: Positive: Nausea, Vomiting, Diarrhea Allergies/Adverse Reactions: Allergies Allergy/AdvReac Type Severity Reaction Status Date / Time Amitriptyline [From Elavil] Allergy Unknown Rash And Verified 08/16/16 13:51 Itching Azithromycin [From Zithromax] Allergy Unknown Vomiting Verified 08/16/16 13:51 Ceftriaxone [From Rocephin] Allergy Unknown Rash And Verified 08/16/16 13:51 Itching Cephalexin [From Keflex] Allergy Unknown Rash And Verified 08/16/16 13:51 Itching Darifenacin Allergy Unknown Rash And Verified 08/16/16 13:51 [From Enablex 15mg] Itching Latex Allergy Unknown Rash Verified 08/16/16 13:51 Nitrofurantoin Allergy Unknown Rash And Verified 08/16/16 13:51 Itching Oxycodone [From Endocet] Allergy Unknown Vomiting Verified 08/16/16 13:51 Penicillins Allergy Unknown vomiting, Verified 08/16/16 13:51 fever Varenicline [From Chantix] Allergy Unknown Rash from Verified 08/16/16 13:51 head to toe, Nausea, Vomiting Methenamine Allergy Rash Verified 08/16/16 13:51 Sulfa Antibiotics Allergy Rash Verified 08/16/16 13:51 Sulfamethoxazole Allergy Rash on Verified 08/16/16 13:51 w/Trimethoprim hands [From Bactrim] PMH/Surg Hx/FS Hx/Imm Hx Previously Healthy: Yes Endocrine/Hematology History: Denies: Hx Diabetes Cardiovascular History: Reports: Other Cardiovascular Problems/Disorders - CHOLESTEROL CONTROL WITH MED Denies: Hx Hypertension, Hx Pacemaker/ICD Respiratory History: Reports: Hx Sleep Apnea - NO MACHINES, Other Respiratory Problems/Disorders - EX SMOKER-02/26/2016 - USING C-Q PATCHES Denies: Hx Asthma, Hx Chronic Obstructive Pulmonary Disease (COPD) GI History: Reports: Hx Diverticulosis, Hx Gastroesophageal Reflux Disease - ON DAILY MEDS History: Denies: Hx Dialysis, Hx Renal Disease Musculoskeletal History: Reports: Hx Arthritis - NECK , SHOULDERS, KNEES, Hx Bursitis, Other Musculoskeletal History - PINCHED NERVE IN NECK Sensory History: Reports: Hx Cataracts - HX OF, Hx Contacts or Glasses - GLASSES Denies: Hx Hearing Aid Opthamlomology History: Reports: Hx Cataracts - HX OF, Hx Contacts or Glasses - GLASSES Psychiatric History: Reports: Hx Anxiety - CONTROL WITH MEDS, Hx Depression Denies: Hx Panic Disorder - Surgical History Surgery Procedure, Year, and Place: 1996 hysterectomy [facility]. 2010 colecystectomy [facility]. 2008 left knee surgery, [facility]. 01/2009 Bladder repair. with sling. [facility]. 02/2009 BLADDER SLING REMOVED [facility]. 2011 & 2012 BLADDER SURGERY [place]. RIGHT ULNAR NERVE LESION, RIGHT CARPAL DACIA, 12/14/13. [facility]. Right ARM BLOOD CLOT. Gastric Bipass Surgery 04/23/16 Hx Anesthesia Reactions: No Infectious Disease History: No Infectious Disease History: Denies: Traveled Outside the [place] in Last 30 Days - Family History Known Family History: Positive: Other - No known hx gout. Crohns- father - Social History Alcohol Use: Rare Alcohol Amount: FEW DRINKS/YEAR Substance Use Type: Reports: None Smoking Status (MU): Former Smoker Type: Cigarettes Amount Used/How Often: 1PPD 45 YRS Length of Time of Smoking/Using Tobacco: 45 YEARS Have You Smoked in the Last Year: Yes Review of Systems Positive: Fever, Chills Positive: Abdominal Pain, Vomiting, Diarrhea, Nausea, Other - blood in stool All Other Systems Reviewed And Are Negative: Yes Physical Exam Triage Information Reviewed: Yes Vital Signs On Initial Exam: Initial Vitals Temp Pulse Resp BP Pulse Ox 98.3 F 88 16 186/94 100 09/01/16 12:08 09/01/16 12:08 09/01/16 12:08 09/01/16 12:08 09/01/16 12:08 Vital Signs Reviewed: Yes Appearance: Positive: No Pain Distress, Ill-Appearing - mildly Skin: Positive: Warm, Skin Color Reflects Adequate Perfusion, Dry Head/Face: Positive: Normal Head/Face Inspection Eyes: Positive: EOMI, KATHY ENT: Positive: Normal ENT inspection Neck: Positive: Supple, Nontender Respiratory/Lung Sounds: Positive: Clear to Auscultation, Breath Sounds Present Cardiovascular: Positive: RRR Abdomen Description: Positive: Soft, Other: - Diffused tenderness that is worst in epigastric and lower abd. Negative: Nontender Bowel Sounds: Positive: Present, Hypoactive Musculoskeletal: Positive: Normal, Strength/ROM Intact Neurological: Positive: Normal, Sensory/Motor Intact, Alert, Oriented to Person Place, Time Psychiatric: Positive: Affect/Mood Appropriate Diagnostics - Vital Signs Vital Signs Temp Pulse Resp BP Pulse Ox 09/01/16 12:08 98.3 F 88 17 186/94 100 - Laboratory Lab Results: Lab Results 09/01/16 09/01/16 09/01/16 Range/Units 13:15 13:15 13:15 WBC 17.5 H (3.5-10.8) 10^3/ul RBC 4.92 (4.0-5.4) 10^6/ul Hgb 14.5 (12.0-16.0) g/dl Hct 44 (35-47) % MCV 90 (80-97) fL MCH 30 (27-31) pg MCHC 33 (31-36) g/dl RDW 14 (10.5-15) % Plt Count 263 (150-450) 10^3/ul MPV 11 H (7.4-10.4) um3 Neut % (Auto) 82.8 (38-83) % Lymph % (Auto) 9.4 L (25-47) % [place] % (Auto) 6.9 (1-9) % Eos % (Auto) 0.5 (0-6) % Baso % (Auto) 0.4 (0-2) % Absolute Neuts (auto) 14.5 H (1.5-7.7) 10^3/ul Absolute Lymphs (auto) 1.6 (1.0-4.8) 10^3/ul Absolute Monos (auto) 1.2 H (0-0.8) 10^3/ul Absolute Eos (auto) 0.1 (0-0.6) 10^3/ul Absolute Basos (auto) 0.1 (0-0.2) 10^3/ul Absolute Nucleated RBC 0.01 10^3/ul Nucleated RBC % 0.1 INR (Anticoag Therapy) 1.09 (0.89-1.11) APTT 33.4 (26.0-36.3) seconds Sodium 140 (133-145) mmol/L Potassium 2.7 L* (3.5-5.0) mmol/L Chloride 102 (101-111) mmol/L Carbon Dioxide 26 (22-32) mmol/L Anion Gap 12 H (2-11) mmol/L BUN 9 (6-24) mg/dL Creatinine 0.61 (0.51-0.95) mg/dL Est GFR ( Amer) 127.4 (>60) Est GFR (Non-Af Amer) 99.1 (>60) BUN/Creatinine Ratio 14.8 (8-20) Glucose 84 (70-100) mg/dL Lactic Acid (0.5-2.0) mmol/L Calcium 9.4 (8.6-10.3) mg/dL Magnesium 1.6 L (1.9-2.7) mg/dL Total Bilirubin 0.50 (0.2-1.0) mg/dL AST 18 (13-39) U/L ALT 11 (7-52) U/L Alkaline Phosphatase 90 (34-104) U/L Troponin I 0.01 (<0.04) ng/mL C-Reactive Protein 26.65 H (< 5.00) mg/L Total Protein 7.5 (6.4-8.9) g/dL Albumin 3.4 (3.2-5.2) g/dL Globulin 4.1 H (2-4) g/dL Albumin/Globulin Ratio 0.8 L (1-3) Lipase 10 L (11.0-82.0) U/L TSH 1.04 (0.34-5.60) mcIU/mL Urine Color Urine Appearance Urine pH (5-9) Ur Specific [place] (1.010-1.030) Urine Protein (Negative) Urine Ketones (Negative) Urine Blood (Negative) Urine Nitrate (Negative) Urine Bilirubin (Negative) Urine Urobilinogen (Negative) Ur Leukocyte Esterase (Negative) Urine WBC (Auto) (Absent) Urine RBC (Auto) (Absent) Ur Squamous Epith Cells (Absent) Urine Bacteria (Absent) Hyaline Casts (Absent) Urine Glucose (Negative) Urine Ascorbic Acid (Negative) 09/01/16 09/01/16 Range/Units 13:15 14:00 WBC (3.5-10.8) 10^3/ul RBC (4.0-5.4) 10^6/ul Hgb (12.0-16.0) g/dl Hct (35-47) % MCV (80-97) fL MCH (27-31) pg MCHC (31-36) g/dl RDW (10.5-15) % Plt Count (150-450) 10^3/ul MPV (7.4-10.4) um3 Neut % (Auto) (38-83) % Lymph % (Auto) (25-47) % [place] % (Auto) (1-9) % Eos % (Auto) (0-6) % Baso % (Auto) (0-2) % Absolute Neuts (auto) (1.5-7.7) 10^3/ul Absolute Lymphs (auto) (1.0-4.8) 10^3/ul Absolute Monos (auto) (0-0.8) 10^3/ul Absolute Eos (auto) (0-0.6) 10^3/ul Absolute Basos (auto) (0-0.2) 10^3/ul Absolute Nucleated RBC 10^3/ul Nucleated RBC % INR (Anticoag Therapy) (0.89-1.11) APTT (26.0-36.3) seconds Sodium (133-145) mmol/L Potassium (3.5-5.0) mmol/L Chloride (101-111) mmol/L Carbon Dioxide (22-32) mmol/L Anion Gap (2-11) mmol/L BUN (6-24) mg/dL Creatinine (0.51-0.95) mg/dL Est GFR ( Amer) (>60) Est GFR (Non-Af Amer) (>60) BUN/Creatinine Ratio (8-20) Glucose (70-100) mg/dL Lactic Acid 0.8 (0.5-2.0) mmol/L Calcium (8.6-10.3) mg/dL Magnesium (1.9-2.7) mg/dL Total Bilirubin (0.2-1.0) mg/dL AST (13-39) U/L ALT (7-52) U/L Alkaline Phosphatase (34-104) U/L Troponin I (<0.04) ng/mL C-Reactive Protein (< 5.00) mg/L Total Protein (6.4-8.9) g/dL Albumin (3.2-5.2) g/dL Globulin (2-4) g/dL Albumin/Globulin Ratio (1-3) Lipase (11.0-82.0) U/L TSH (0.34-5.60) mcIU/mL Urine Color Elaine Urine Appearance Cloudy Urine pH 6.0 (5-9) Ur Specific [place] 1.015 (1.010-1.030) Urine Protein Negative (Negative) Urine Ketones Trace H (Negative) Urine Blood Negative (Negative) Urine Nitrate Negative (Negative) Urine Bilirubin Negative (Negative) Urine Urobilinogen Negative (Negative) Ur Leukocyte Esterase Trace H (Negative) Urine WBC (Auto) 1+(6-10/hpf) H (Absent) Urine RBC (Auto) Absent (Absent) Ur Squamous Epith Cells Present H (Absent) Urine Bacteria 1+ H (Absent) Hyaline Casts Present H (Absent) Urine Glucose Negative (Negative) Urine Ascorbic Acid * H (Negative) Result Diagrams: 09/01/16 13:15 09/01/16 13:15 Lab Statement: Any lab studies that have been ordered have been reviewed, and results considered in the medical decision making process. Abdominal Pain Fem Course/Dx - Course Course Of Treatment: A 65 y/o female came in to [facility] presenting w/ a gradual onset of constant lower abd pain starting Friday, 08/30. At times, severity rated 5/10, but when it is worst, it is rated above 10/10. She was referred here by Dr. Sebastian. Pt reports n/v/d, blood in stool of bright red color, fever , chills. This morning, her Sx started at 0300. NO CRITICAL CARE TIME. 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 PMHx gastric bypass in April, diverticulitis. Potassium levels were at 2.7 mmol/L. C.diff test positive. CT abd/pel showed - Diagnoses Provider Diagnoses: C. difficile colitis, Diverticulitis, Abdominal pain - Provider Notifications Discussed Care Of Patient With: Dr. Sebastian at 1245: discussed pt care. Discharge - Discharge Plan Condition: Stable Disposition: ADMITTED TO [facility] Referrals: Agueda Hudson MD [Primary Care Provider] - The documentation as recorded by the Vernon mcnair Janilya accurately reflects the service I personally performed and the decisions made by me, Felipe Jenkins MD.
[2016-09-01] MEDS ORDERED: Potassium Chlor TAB* 20 MEQ TAB.ER PO ONE (16:00)
[2016-09-01] MEDS ORDERED: Magnesium Sulfate 2 GM IV* 2 GM/50 ML BAG IVPB ONE (16:00)
[2016-09-01] MEDS ORDERED: PROCHLORPERAZINE INJ 5 MG/ML 2 ML VIAL IV PRN (17:09)
[2016-09-01] MEDS ORDERED: Levofloxacin 500 MG IVPREMIX(* 500 MG/100 ML BAG IVPB SCH (18:30)
[2016-09-01] MEDS: NS 0.9% w/ 40 Meq KCL 1000 ML* 1,000 ML IV SCH (18:55)
[2016-09-01] MEDS: Vancomycin CAP* 125 MG CAP PO SCH ×2 (18:56→20:38)
[2016-09-01] MEDS: Pantoprazole IV* 40 MG IV SCH (19:56)
[2016-09-01] MEDS: metroNIDAZOLE IV 500 MG/100ML* 500 MG/100 ML BAG IVPB SCH (19:57)
[2016-09-01] MEDS: Gabapentin CAP(*) 300 MG PO SCH (20:38)
--- NOTE | 2016-09-01 20:45 | HP ---
ADDENDUM NOW INCLUDED ON THIS REPORT HISTORY AND PHYSICAL: DATE OF ADMISSION: 09/01/16 PRIMARY CARE PROVIDER: Dr. Agueda Hudson. CHIEF COMPLAINT: Abdominal pain, nausea, and diarrhea. HISTORY OF PRESENT ILLNESS: The patient is a 65-year-old female status post Paul- en-Y bypass in April 2016 for morbid obesity as well as recurrent diverticulitis, who had been treated with diverticulitis since 08/16/16 and stopped the treatment on 08/31/16 just yesterday. The patient stated that for the past 4 days she has been having nausea, vomiting, and diarrhea as well as worsening abdominal pain despite continuation of her antibiotics up until yesterday. CT of the abdomen shows worsening of diverticulitis. The patient's C. diff is positive in the stool. She is going to be admitted with diagnosis of C. diff associated diarrhea and diverticulitis. PAST MEDICAL HISTORY: 1. Morbid obesity, status post Paul-en-Y gastric bypass in [address] Sebastian. 2. Diabetes type 2. 3. Hypertension. 4. Gastroesophageal reflux disease. 5. Osteoarthritis with chronic neck and shoulder pain. 6. Hyperlipidemia. 7. Recurrent diverticulitis. 8. Obstructive sleep apnea, the patient was not tolerating CPAP. 9. Hysterectomy. 10. Laparoscopic cholecystectomy. 11. History of bladder surgery x2. 12. Carpal tunnel release on the right. 13. Bilateral cataract extraction. 14. Left knee arthroscopy. MEDICATIONS: Include: 1. Gabapentin 300 mg b.i.d. 2. Sertraline 50 mg on Mondays, Wednesdays, and Fridays 3 times a week. 3. Protonix 40 mg daily. 4. Oxybutynin 10 mg daily. 5. Crestor 20 mg daily. 6. Myrbetriq 25 mg daily. 7. Estrogen cream 3%. 8. Vitamin D3 1000 units daily. 9. Vitamin B12 500 mcg daily. ALLERGIES: Multiple and include KEFLEX, ZITHROMAX, PENICILLIN, ROCEPHIN, BACTRIM, and SULFA that caused hives and vomiting. Unspecified reaction to ELAVIL, OXYCODONE, CHANTIX, and LASIX, but she had tolerated morphine in the past. FAMILY HISTORY: Positive for father with a history of Crohn's and colon cancer. SOCIAL HISTORY: The patient is . Her healthcare proxy is her son. She denies any alcohol, tobacco, or drug use. She has been on disability since 2003. REVIEW OF SYSTEMS: Please see history of present illness. The patient is very satisfied with her gastric bypass and she lost 65 pounds since April. Her abdominal pain is in the suprapubic and left lower quadrant area. It has worsened in the past few days. The patient also had been nauseated and vomiting. Diarrhea started approximately 4 days ago. The remaining 14 systems were reviewed with the patient and were otherwise negative. PHYSICAL EXAMINATION GENERAL: The patient is a 65-year-old obese female who is in no acute distress. Alert, awake, and oriented x3. VITAL SIGNS: Blood pressure of 147/88, heart rate of 71 and regular, respiratory rate 15, oxygen saturation 92% on room air, temperature of 98.3. HEENT: Head: Atraumatic, normocephalic. Eyes: Pupils equal, reactive to light and accommodation. Oropharynx clear. Mucosa moist. NECK: Supple. No JVD. No bruit bilaterally. RESPIRATORY: Clear to auscultation bilaterally. CARDIOVASCULAR: Regular rate and rhythm. No murmur. ABDOMEN: Soft. Mildly tender in the suprapubic area and the left lower quadrant with no rebound, no guarding. Bowel sounds are present in all 4 quadrants. EXTREMITIES: There is no edema. Pulses are +2 bilaterally. No clubbing or cyanosis. NEUROLOGIC EVALUATION: Speech clear. Cranial nerves II through XII grossly intact. Motor strength is 5/5 bilaterally. SKIN: On evaluation of the skin, no ecchymotic areas or rashes noted. PSYCHIATRIC EVALUATION: Pleasant, cooperative on evaluation. Oriented x3. No evidence of anxiety or depression. LABORATORY DATA AND DIAGNOSTIC STUDIES: Show white blood cell count of 17.5, hemoglobin of 14.5, hematocrit of 44, and platelets of 263. Sodium was 140, potassium 2.7, chloride 102, carbon dioxide 26, BUN 9, creatinine 0.6. Liver function tests were unremarkable. Magnesium of 1.6. C- reactive protein of 26. TSH of 1.04 and lipase of 10. Urinalysis shows trace leukocyte esterase, trace bacteria, positive for trace white blood cells also. CT of abdomen and pelvis, impression: "Findings most consistent with diverticulitis involving the distal transverse colon. This appears to be slightly more proximal to the region of diverticulitis noted previously on 08/16. Although it may represent the same area, assuming slight differences in positioning of the colon. This appears to have progressed slightly from prior study. No abscess is present. Thickening of the wall of the sigmoid colon, unchanged. Recommend colonoscopy for further evaluation as previously noted. Mild hepatomegaly and hepatic steatosis. Status post gastric bypass surgery. Cholecystectomy and hysterectomy." EKG read by myself shows normal sinus rhythm with a heart rate of 71 beats per minute with no specific interventricular conduction delay and Q waves in leads V1 through V3 possibly due to old infarct. There was no old EKG available for comparison. ASSESSMENT AND PLAN: In regards to the patient's diverticulitis, it appears to have continued and progressed on the CT scan despite treatment with ciprofloxacin and Flagyl that were started on 08/16/16 and stopped on 08/31/16. At this point, due to the patient's multiple allergies, we will continue Flagyl and levofloxacin intravenously. In regards to Clostridium difficile associated diarrhea that evolved despite the patient being on p.o. Flagyl, the patient is going to be placed on p.o. vancomycin and Infectious Disease specialist is going to be contacted in the morning for consult. In regards to the patient's neuropathic pain, gabapentin is going to be continued. Hypomagnesemia, it is going to be placed intravenously. The patient's hypokalemia, it is going to be placed orally. For DVT prophylaxis, the patient is going to be placed on heparin subcutaneously. TIME SPENT: Approximately 68 minutes was spent on admission of this patient, more than half that time was spent [id number] with the patient during the interview and physical exam. ADDENDUM: Please note that the patient also reported bright red blood per rectum with her stools. Due to that, heparin is not going to be used for DVT prophylaxis and we will place the patient on sequential compression devices. I will repeat CBC in the morning. The patient is going to be placed on intravenous Protonix. CC: Dr. Agueda Hudson; Dr. Sebastian* [id number]/CPS #: [id number]/CPS #: [id number] [facility]
--- NOTE | 2016-09-01 20:53 | HP ---
*HISTORY AND PHYSICAL:* ADDENDUM: Please note that the patient also reported bright red blood per rectum with her stools. Due to that, heparin is not going to be used for DVT prophylaxis and we will place the patient on sequential compression devices. I will repeat CBC in the morning. The patient is going to be placed on intravenous Protonix. [id number]/[facility] #: [id number] MTDD
[2016-09-02] MEDS: metroNIDAZOLE IV 500 MG/100ML* 500 MG/100 ML BAG IVPB SCH ×2 (03:46→15:08)
[2016-09-02] MEDS: NS 0.9% w/ 40 Meq KCL 1000 ML* 1,000 ML IV SCH (05:55)
[2016-09-02 08:42] LABS: Hematocrit 36 % (35-47); Hemoglobin 11.9 g/dl (12.0-16.0); Mean Corpuscular HGB Conc 33 g/dl (31-36); Mean Corpuscular Hemoglobin 30 pg (27-31); Mean Corpuscular Volume 91 fL (80-97); Mean Platelet Volume 12 um3 (7.4-10.4); Red Blood Count 3.98 10^6/ul (4.0-5.4); Red Cell Distribution Width 14 % (10.5-15); White Blood Count 10.9 10^3/ul (3.5-10.8)
[2016-09-02] MEDS ORDERED: Sertraline* 50 MG TAB PO SCH ×2 (09:00→09:50)
--- NOTE | 2016-09-02 09:04 | CONSULT ---
Consult Consult: Surgical consult dictated. Impression/Plan: C. diff colitis, patient is clinically doing much better. Patient was eager to be discharged home today. I discussed it with Dr. Hart, who will wait infectious disease consult to determine which PO antibiotics will provide best coverage. No surgical indications at this time, or any evidence of acute abdomen. Will follow her accordingly during this admission. Thank you for this consultation.
[2016-09-02 09:30] LABS: BUN/Creatinine Ratio 12.5 (8-20); EGFR African American 140.6 (>60); EGFR Non-African American 109.3 (>60); Potassium 3.6 mmol/L (3.5-5.0)
[2016-09-02] MEDS: Oxybutynin XL TAB* 5 MG PO SCH (09:58)
[2016-09-02] MEDS: Gabapentin CAP(*) 300 MG PO SCH ×2 (09:58→21:04)
[2016-09-02] MEDS: Vancomycin CAP* 125 MG CAP PO SCH ×4 (09:59→21:06)
--- NOTE | 2016-09-02 10:55 | CONS ---
CONSULTATION REPORT: DATE OF CONSULT: 09/02/16 PATIENT OF: Dr. Ana Hart. REFERRED TO: Dr. Talon Sebastian. (DICTATED BY KE HELLER) CHIEF COMPLAINT: Abdominal pain, nausea, and diarrhea. REASON FOR CONSULTATION: Abdominal pain and C. diff colitis. HISTORY OF PRESENT ILLNESS: Ms. Martinez is a pleasant 65-year-old female who is well-known to us from prior laparoscopic Paul-en-Y gastric bypass back in April 2016. The patient had her surgery by Dr. Sebastian and reports doing extremely well after her surgery, losing about 70 pounds up to date. She has a history of recurrent diverticulitis that was successfully treated in the past with oral antibiotics. She had another bout of diverticulitis approximately 2 weeks ago, for which she has been on Levaquin and Flagyl at home. She notes that her pain was initially resolved; however, in the past few days prior to her admission, she noticed increased pain on the left upper quadrant in association with nausea, vomiting and loose bowel stools as well. She denied any fever or chills. She noticed bright red blood in her last bout of diarrhea for which she presented to the emergency room for further evaluation. She had a CT scan of the abdomen and pelvis during her ER visit that revealed evidence of descending colon and proximal transverse colon diverticulitis as well as thickening of the sigmoid colon, but no evidence of abscess or free air. She had a C. diff panel obtained that revealed positive results for which she was admitted with a diagnosis of C. diff colitis given her stool studies as well as her ongoing symptoms. We were asked to see the patient for further evaluation of her colitis, diverticulitis, and her prior history of morbid obesity and gastric bypass. PAST MEDICAL HISTORY: Remarkable for morbid obesity, diabetes mellitus type 2 for which she has not taken any medications since she lost all her weight. She also has history of hypertension, GERD, osteoarthritis with chronic neck and shoulder pain, hyperlipidemia, recurrent diverticulitis, obstructive sleep apnea. PAST SURGICAL HISTORY: Significant for laparoscopic Paul-en-Y gastric bypass back in April of 2016. She also has history of hysterectomy, laparoscopic cholecystectomy, history of bladder suspension twice, carpal tunnel release on the right hand, bilateral cataract extraction, as well as left knee arthroscopy. MEDICATIONS AT HOME: Include: 1. Gabapentin 300 mg p.o. b.i.d. 2. Sertraline 50 mg 3 times weekly. 3. Protonix 40 mg every day. 4. Oxybutynin 10 mg every day. 5. Crestor 20 mg every day. 6. Myrbetriq 25 mg every day. 7. Estrogen cream 3%, use as needed. 8. Vitamin D3 1000 units daily. ALLERGIES: She has multiple allergies including KEFLEX, ZITHROMAX, PENICILLIN, ROCEPHIN, BACTRIM, SULFA that caused hives and vomiting. She also has some side effects to OXYCODONE, CHANTIX, LASIX, ELAVIL. Also, she reports tolerating morphine for pain in the past. FAMILY HISTORY: Positive for Crohn's disease in her father's family, but denies any history of colorectal malignancies. SOCIAL HISTORY: The patient is . She used to smoke in the remote past, quit long time ago. She denies alcohol intake and caffeine intake is minimal. REVIEW OF SYSTEMS: See HPI, otherwise negative. She denies any headache, dizziness, blurred vision. No fever, chills, night sweats or recent weight loss. No chest pain, shortness of breath, cough, palpitation or wheezing. She denies any back pain different than her usual arthritic aches. She admits to left upper quadrant abdominal pain that has gotten better since her admission with associated nausea, vomiting, and loose bowel movements. She denies any flank pain, dysuria, hematuria or urinary frequency. PHYSICAL EXAMINATION: General: She is a pleasant, middle-aged female, obese, comfortable at the time of consultation today. Vitals: Her vitals this morning revealed temperature of 97.9, blood pressure of 138/75, pulse of 60, respiration of 20, and O2 sat of 95% on room air. HEENT: Sclerae anicteric. PERRLA. EOMs intact. Oropharynx is pink and moist with no exudate. Neck: Supple. Trachea midline. No cervical adenopathy or thyromegaly. Lungs: Clear to auscultation bilaterally. No rales, wheezing or rhonchi. Heart: Regular rate and rhythm. Normal S1 and S2 without rubs, murmurs, or gallops. Back: With normal curvature. No CVA tenderness. Abdomen: Soft, round, and nondistended. There is mild left upper quadrant tenderness on deep palpation, but no rebound, tympany or rigidity. There are no hernias, masses, or hepatosplenomegaly. Incisions from prior gastric bypass surgery noted and well- healed. No rebound tenderness noted. Extremities: Without cyanosis, clubbing or edema. Neurologic: Grossly intact. Rectal exam: Deferred at this time. LABORATORY WORKUP: CBC this morning revealed resolution of leukocytosis value of 10,900 down from 17,500 yesterday. Hemoglobin 11.9, hematocrit is 36. Her chemistry with sodium of 140, potassium 3.6, chloride 108, CO2 26, BUN 7, creatinine of 0.6, glucose of 81. Her LFTs were essentially within normal limits. C-reactive protein yesterday was 26.6. ACCESSORY DIAGNOSTIC DATA: A CT scan of the abdomen and pelvis was done yesterday in the ED, revealing findings most consistent with diverticulitis involving the distal transverse colon that appears more proximal to the region of diverticulitis noted on the previous studies. There was also thickening of the wall of the sigmoid colon, which is probably consistent with her diagnosis of C. diff colitis. There was no evidence of abscesses, free air, or bowel obstruction. IMPRESSION: A 65-year-old female with recurrent episode of diverticulitis that was managed using oral antibiotics at home, who unfortunately developed increasing pain and loose stools as well as findings consistent with C. diff colitis. PLAN: The patient was admitted under medical services for treatment of C. diff colitis. She has been maintained on IV Flagyl at that point. This morning, she reports feeling much better from her pain as well as loose bowel movement. She was eager to be discharged to home today; however, I will discuss it with Dr. Hart to see if IV antibiotics or even vancomycin enema would be indicated in that case. She is clinically stable and has no signs of any acute abdomen or surgical indication at this time. We will follow the patient up during her admission. At this time, we will await Infectious Disease consultation for recommendation regarding which antibiotic agent to use as an outpatient treatment. Thank you for this consultation. [facility] KE JANSEN [id number]/[facility] #: [id number] DANIKA
--- NOTE | 2016-09-02 11:29 | PN ---
Subjective Date of Service: 09/02/16 Interval History: 30-40 BMs yesterday decreased to 5 this AM. No additional nausea or vomiting. She feels much improved and would like to go home. If she cannot go home she would like to ambulate. Objective Active Medications: Gabapentin (Neurontin Cap(*)) 300 mg PO BID [facility] Last Admin: 09/02/16 09:58 Dose: 300 mg Potassium Chloride/Sodium Chloride (Ns 0.9% W/ 40 Meq Kcl 1000 Ml*) 1,000 mls @ 125 mls/hr IV PER RATE [facility] Last Admin: 09/02/16 05:55 Dose: 125 mls/hr Metronidazole/Sodium Chloride (Flagyl 500 Mg Ivpb*) 500 mg in 100 mls @ 100 mls /hr IVPB Q8H [facility] Last Admin: 09/02/16 03:46 Dose: 100 mls/hr Levofloxacin/Dextrose (Levaquin 500 Mg Ivpremix(*)) 500 mg in 100 mls @ 100 mls /hr IVPB Q24H [facility] Last Admin: 09/01/16 18:55 Dose: 100 mls/hr Oxybutynin Chloride (Ditropan Xl Tab*) 10 mg PO QAM [facility] Last Admin: 09/02/16 09:58 Dose: 10 mg Pantoprazole Sodium (Protonix Iv*) 40 mg IV Q24H [facility] Last Admin: 09/01/16 19:56 Dose: 40 mg Prochlorperazine Edisylate (Compazine Inj*) 5 mg IV Q6H PRN PRN Reason: NAUSEA/VOMITING Sertraline HCl (Zoloft*) 50 mg PO MoWeFr@0900 [facility] Last Admin: 09/02/16 09:58 Dose: 50 mg Vancomycin HCl (Vancomycin Cap*) 125 mg PO QID [facility] Last Admin: 09/02/16 09:59 Dose: 125 mg Vital Signs 09/01/16 09/01/16 09/01/16 16:00 16:23 16:30 Temperature Pulse Rate 72 69 Respiratory 14 16 15 Rate Blood Pressure 134/66 147/88 (mmHg) O2 Sat by Pulse 91 94 Oximetry 09/01/16 09/01/16 09/01/16 16:59 18:23 20:38 Temperature 98.6 F Pulse Rate 71 71 Respiratory 15 18 18 Rate Blood Pressure 138/73 (mmHg) O2 Sat by Pulse 92 92 Oximetry 09/01/16 09/02/16 09/02/16 22:38 00:17 03:33 Temperature 98.8 F 98.1 F Pulse Rate 65 64 Respiratory 20 20 20 Rate Blood Pressure 127/57 121/43 (mmHg) O2 Sat by Pulse 91 93 Oximetry 09/02/16 09/02/16 09/02/16 07:24 07:29 07:42 Temperature 97.9 F Pulse Rate 58 60 Respiratory 16 20 Rate Blood Pressure 138/75 (mmHg) O2 Sat by Pulse 95 Oximetry 09/02/16 09:58 Temperature Pulse Rate Respiratory 16 Rate Blood Pressure (mmHg) O2 Sat by Pulse Oximetry Oxygen Devices in Use Now: None Appearance: obese, interactive, NAD Eyes: No Scleral Icterus, PERRLA Ears/Nose/Mouth/Throat: Clear Oropharnyx, Mucous Membranes Moist Neck: NL Appearance and Movements; NL JVP, Trachea Midline Respiratory: Symmetrical Chest Expansion and Respiratory Effort, Clear to Auscultation Cardiovascular: NL Sounds; No Murmurs; No JVD, RRR Abdominal: NL Sounds; No Tenderness; No Distention, No Hepatosplenomegaly, - Lymphatic: No Cervical Adenopathy Extremities: No Edema, No Clubbing, Cyanosis Skin: No Rash or Ulcers Neurological: Alert and Oriented x 3 Result Diagrams: 09/02/16 05:50 09/02/16 05:50 Additional Lab and Data: Lab Results 09/01/16 09/01/16 09/01/16 Range/Units 13:15 13:15 13:15 WBC 17.5 H (3.5-10.8) 10^3/ul RBC 4.92 (4.0-5.4) 10^6/ul Hgb 14.5 (12.0-16.0) g/dl Hct 44 (35-47) % MCV 90 (80-97) fL MCH 30 (27-31) pg MCHC 33 (31-36) g/dl RDW 14 (10.5-15) % Plt Count 263 (150-450) 10^3/ul MPV 11 H (7.4-10.4) um3 Neut % (Auto) 82.8 (38-83) % Lymph % (Auto) 9.4 L (25-47) % Ware % (Auto) 6.9 (1-9) % Eos % (Auto) 0.5 (0-6) % Baso % (Auto) 0.4 (0-2) % Absolute Neuts (auto) 14.5 H (1.5-7.7) 10^3/ul Absolute Lymphs (auto) 1.6 (1.0-4.8) 10^3/ul Absolute Monos (auto) 1.2 H (0-0.8) 10^3/ul Absolute Eos (auto) 0.1 (0-0.6) 10^3/ul Absolute Basos (auto) 0.1 (0-0.2) 10^3/ul Absolute Nucleated RBC 0.01 10^3/ul Nucleated RBC % 0.1 INR (Anticoag Therapy) 1.09 (0.89-1.11) APTT 33.4 (26.0-36.3) seconds Sodium 140 (133-145) mmol/L Potassium 2.7 L* (3.5-5.0) mmol/L Chloride 102 (101-111) mmol/L Carbon Dioxide 26 (22-32) mmol/L Anion Gap 12 H (2-11) mmol/L BUN 9 (6-24) mg/dL Creatinine 0.61 (0.51-0.95) mg/dL Est GFR ( Amer) 127.4 (>60) Est GFR (Non-Af Amer) 99.1 (>60) BUN/Creatinine Ratio 14.8 (8-20) Glucose 84 (70-100) mg/dL Lactic Acid (0.5-2.0) mmol/L Calcium 9.4 (8.6-10.3) mg/dL Magnesium 1.6 L (1.9-2.7) mg/dL Total Bilirubin 0.50 (0.2-1.0) mg/dL AST 18 (13-39) U/L ALT 11 (7-52) U/L Alkaline Phosphatase 90 (34-104) U/L Troponin I 0.01 (<0.04) ng/mL C-Reactive Protein 26.65 H (< 5.00) mg/L Total Protein 7.5 (6.4-8.9) g/dL Albumin 3.4 (3.2-5.2) g/dL Globulin 4.1 H (2-4) g/dL Albumin/Globulin Ratio 0.8 L (1-3) Lipase 10 L (11.0-82.0) U/L TSH 1.04 (0.34-5.60) mcIU/mL Urine Color Urine Appearance Urine pH (5-9) Ur Specific [place] (1.010-1.030) Urine Protein (Negative) Urine Ketones (Negative) Urine Blood (Negative) Urine Nitrate (Negative) Urine Bilirubin (Negative) Urine Urobilinogen (Negative) Ur Leukocyte Esterase (Negative) Urine WBC (Auto) (Absent) Urine RBC (Auto) (Absent) Ur Squamous Epith Cells (Absent) Urine Bacteria (Absent) Hyaline Casts (Absent) Urine Glucose (Negative) Urine Ascorbic Acid (Negative) 09/01/16 09/01/16 Range/Units 13:15 14:00 WBC (3.5-10.8) 10^3/ul RBC (4.0-5.4) 10^6/ul Hgb (12.0-16.0) g/dl Hct (35-47) % MCV (80-97) fL MCH (27-31) pg MCHC (31-36) g/dl RDW (10.5-15) % Plt Count (150-450) 10^3/ul MPV (7.4-10.4) um3 Neut % (Auto) (38-83) % Lymph % (Auto) (25-47) % Ware % (Auto) (1-9) % Eos % (Auto) (0-6) % Baso % (Auto) (0-2) % Absolute Neuts (auto) (1.5-7.7) 10^3/ul Absolute Lymphs (auto) (1.0-4.8) 10^3/ul Absolute Monos (auto) (0-0.8) 10^3/ul Absolute Eos (auto) (0-0.6) 10^3/ul Absolute Basos (auto) (0-0.2) 10^3/ul Absolute Nucleated RBC 10^3/ul Nucleated RBC % INR (Anticoag Therapy) (0.89-1.11) APTT (26.0-36.3) seconds Sodium (133-145) mmol/L Potassium (3.5-5.0) mmol/L Chloride (101-111) mmol/L Carbon Dioxide (22-32) mmol/L Anion Gap (2-11) mmol/L BUN (6-24) mg/dL Creatinine (0.51-0.95) mg/dL Est GFR ( Amer) (>60) Est GFR (Non-Af Amer) (>60) BUN/Creatinine Ratio (8-20) Glucose (70-100) mg/dL Lactic Acid 0.8 (0.5-2.0) mmol/L Calcium (8.6-10.3) mg/dL Magnesium (1.9-2.7) mg/dL Total Bilirubin (0.2-1.0) mg/dL AST (13-39) U/L ALT (7-52) U/L Alkaline Phosphatase (34-104) U/L Troponin I (<0.04) ng/mL C-Reactive Protein (< 5.00) mg/L Total Protein (6.4-8.9) g/dL Albumin (3.2-5.2) g/dL Globulin (2-4) g/dL Albumin/Globulin Ratio (1-3) Lipase (11.0-82.0) U/L TSH (0.34-5.60) mcIU/mL Urine Color Elaine Urine Appearance Cloudy Urine pH 6.0 (5-9) Ur Specific [place] 1.015 (1.010-1.030) Urine Protein Negative (Negative) Urine Ketones Trace H (Negative) Urine Blood Negative (Negative) Urine Nitrate Negative (Negative) Urine Bilirubin Negative (Negative) Urine Urobilinogen Negative (Negative) Ur Leukocyte Esterase Trace H (Negative) Urine WBC (Auto) 1+(6-10/hpf) H (Absent) Urine RBC (Auto) Absent (Absent) Ur Squamous Epith Cells Present H (Absent) Urine Bacteria 1+ H (Absent) Hyaline Casts Present H (Absent) Urine Glucose Negative (Negative) Urine Ascorbic Acid * H (Negative) Assess/Plan/Problems-Billing Assessment: 65 F gastric bypass 04/2016, history of recurrent diverticulitis, p/w abdominal pain, N/V, frequent diarrhea found +c. diff, and persistent/worsening diverticulitis - Patient Problems (1) Diverticulitis Comment: Pt reports 3-5 episodes over last 10 yeasr with last episode 5 yrs prior Unclear if her radiographic resolution of disease is lagging behing clinical and her current pain was in setting of C. diff or if this truely represents oral abx failure. She is much improved this AM. Favor additional 24hrs IV abx and reeval tomorrow for PO conversion and discharge home. Will ask ID for additional assistance. (2) C. difficile colitis Comment: Pt reports diarrhea every 15 minutes up to 40 BMs. In setting of recent abx (although 1 was flagyl) I think this represents infection. She is improved on IV flagyl and PO vancomycin. c/w abx (3) Depression Comment: Zoloft (4) Hypokalemia Comment: In setting of dirrhea Largely resolved PO suuplimentation (5) DVT prophylaxis Comment: Only 1 episode of minimal BRBPR prior to admission. Resume HSQ
[2016-09-02] MEDS ORDERED: Potassium Chlor TAB* 20 MEQ TAB.ER PO ONE (11:33)
[2016-09-02] MEDS ORDERED: Magnesium Sulfate 2 GM IV* 2 GM/50 ML BAG IVPB ONE (11:33)
--- NOTE | 2016-09-02 12:14 | PN ---
<Shyann Brito - Last Filed: 09/02/16 12:25> Infectious Disease Note Date of Evaluation: 09/02/16 SOAP: Consult requested by: Dr. Hart Consult reason: C diff. Colitis Consult attending: Dr. Uriarte #HPI 65 year old lady with morbid obesity s/p gastric bypass Apr 2016, DM2, HTN, HL, recurrent diverticulitis, admitted after worsening abdominal pain and diarrhea, in context of cdiff positivity. Per patient, received gastric bypass in Apr of this year without subsequent complications and has dealt with "diverticular problems" for up to 10 years with occasional loose stools and LLQ abdominal pain. Of note, 3-4 weeks prior to presentation, had worsening LLQ pain, watery stools, no fevers, visited OSH ED and started on Ciprol/Flagyl for 3 week course. Around last developed worsening LLQ pain with increasingly frequent stools (describes consistency as jello-like, no melena or blood), and over the weekend developed nausea and vomiting, could not keep PO down, and was having diarrhea episodes multiple times daily so brought into ED. CTAP done in ED and tested positive for cdiff, switched to IV LVQN and PO Vanc. When examined by ID team, notes two BM episodes, one earlier with blood and another around 10 AM which was loose but not watery. Says abdominal pain, nausea, and vomiting has not completely resolved, and has not been febrile. Anxious to go home. #RoS Gen: denies fevers/chills HEENT: denies vision problems, + SEN Respiratory: denies dyspnea and pleurisy, denies cough Cardiac: denies chest pain or palpitations GI: + n/v/d : denies dysuria MSK: denies pain Neuro: denies sensory or motor deficits Psych: denies depression #PMH/PSH as above and additionally: GERD OA JAMAL HHY Lap Rebeka Bladder surgery R carpel tunnel release b/l cataract removal L knee arthroscopy #FH n/c #Social Hx denies smoking, illcit drug use retired, lives with at home #Home Meds Acetaminophen TAB* [Tylenol TAB*] 650 mg PO Q8H PRN 09/01/16 [History Confirmed 09/01/16] Calcium Citrate TAB* [Citracal TAB*] 200 mg PO BID 09/01/16 [History Confirmed 09/01/16] Cholecalciferol TAB* [Vitamin D TAB*] 1,000 units PO DAILY 09/01/16 [History Confirmed 09/01/16] Cyanocobalamin TAB* [Vitamin B12 TAB*] 500 mcg PO DAILY 09/01/16 [History Confirmed 09/01/16] DOXYcycline CAP(*) [DOXYcycline 100MG CAP(*)] 100 mg PO BID 09/01/16 [History Confirmed 09/01/16] Estradiol VAG CM (NF) [Estrace VAG CM (NF)] 1 applic VAGINAL .THREE TIMES A WEEK 09/01/16 [History Confirmed 09/01/16] Gabapentin CAP(*) [Neurontin 300 CAP(*)] 300 mg PO BID 09/01/16 [History Confirmed 09/01/16] Indomethacin CAP* [Indocin CAP*] 50 mg PO TID PRN 09/01/16 [History Confirmed ] Mirabegron (NF) [Myrbetriq (NF)] 25 mg PO DAILY 09/01/16 [History Confirmed ] Oxybutynin XL TAB* [Ditropan XL TAB*] 10 mg PO DAILY 09/01/16 [History Confirmed 09/01/16] Pantoprazole TAB (NF) [Protonix TAB (NF)] 40 mg PO DAILY 09/01/16 [History Confirmed 09/01/16] Pediatric Multiple Vitamin W/ [Flintstones Gummies Plus] 1 chw PO DAILY [History Confirmed 09/01/16] Rosuvastatin (NF) [Crestor (NF)] 20 mg PO BEDTIME 09/01/16 [History Confirmed ] Sertraline* [Zoloft*] 50 mg PO SEE INSTRUCTIONS 09/01/16 [History Confirmed ] #Vitals Temp Pulse Resp BP Pulse Ox 36.6 C 60 16 138/75 95 09/02/16 07:24 09/02/16 07:42 09/02/16 09:58 09/02/16 07:24 09/02/16 07:24 #Physical Exam Gen: well-appearing, obese elderly lady sitting on bed HEENT: PERRLA EOMI no cervical LA Respiratory: CTAB Cardiac: nl s1 s2 no r/m/g Abd: soft mild epigastric ttp, LLQ ttp, no rebound, guarding, + BS, no HSM appreciated MSK: no erythema/swelling/ttp to shoulders, fingers, knees, ankles, back Skin/extremities: no rashes Neuro: AAOx3. no focal deficits Psych: euthymic #Current Meds Gabapentin (Neurontin Cap(*)) 300 mg PO BID [facility] Last Admin: 09/02/16 09:58 Dose: 300 mg Heparin Sodium (Porcine) (Heparin Vial(*)) 5,000 units SUBCUT Q8HR [facility] Potassium Chloride/Sodium Chloride (Ns 0.9% W/ 40 Meq Kcl 1000 Ml*) 1,000 mls @ 125 mls/hr IV PER RATE [facility] Last Admin: 09/02/16 05:55 Dose: 125 mls/hr Magnesium Sulfate (Magnesium Sulfate 2 Gm Iv*) 2 gm in 50 mls @ 50 mls/hr IVPB ONCE ONE Stop: 09/02/16 12:32 Oxybutynin Chloride (Ditropan Xl Tab*) 10 mg PO QAM [facility] Last Admin: 09/02/16 09:58 Dose: 10 mg Pantoprazole Sodium (Protonix Iv*) 40 mg IV Q24H [facility] Last Admin: 09/01/16 19:56 Dose: 40 mg Prochlorperazine Edisylate (Compazine Inj*) 5 mg IV Q6H PRN PRN Reason: NAUSEA/VOMITING Sertraline HCl (Zoloft*) 50 mg PO MoWeFr@0900 [facility] Last Admin: 09/02/16 09:58 Dose: 50 mg Vancomycin HCl (Vancomycin Cap*) 125 mg PO QID [facility] Last Admin: 09/02/16 09:59 Dose: 125 mg #Allergies Amitryptyline, Azithro, CTX, Cephalexin #Data Abnormal Lab Results 09/01/16 09/01/16 09/01/16 13:15 13:15 13:15 WBC 17.5 H RBC 4.92 Hgb 14.5 Hct 44 MCV 90 MCH 30 MCHC 33 RDW 14 Plt Count 263 MPV 11 H Neut % (Auto) 82.8 Lymph % (Auto) 9.4 L White % (Auto) 6.9 Eos % (Auto) 0.5 Baso % (Auto) 0.4 Absolute Neuts (auto) 14.5 H Absolute Lymphs (auto) 1.6 Absolute Monos (auto) 1.2 H Absolute Eos (auto) 0.1 Absolute Basos (auto) 0.1 Absolute Nucleated RBC 0.01 Nucleated RBC % 0.1 INR (Anticoag Therapy) 1.09 APTT 33.4 Sodium 140 Potassium 2.7 L* Chloride 102 Carbon Dioxide 26 Anion Gap 12 H BUN 9 Creatinine 0.61 Est GFR ( Amer) 127.4 Est GFR (Non-Af Amer) 99.1 BUN/Creatinine Ratio 14.8 Glucose 84 Lactic Acid Calcium 9.4 Magnesium 1.6 L Total Bilirubin 0.50 AST 18 ALT 11 Alkaline Phosphatase 90 Troponin I 0.01 C-Reactive Protein 26.65 H Total Protein 7.5 Albumin 3.4 Globulin 4.1 H Albumin/Globulin Ratio 0.8 L Lipase 10 L TSH 1.04 Urine Color Urine Appearance Urine pH Ur Specific [place] Urine Protein Urine Ketones Urine Blood Urine Nitrate Urine Bilirubin Urine Urobilinogen Ur Leukocyte Esterase Urine WBC (Auto) Urine RBC (Auto) Ur Squamous Epith Cells Urine Bacteria Hyaline Casts Urine Glucose Urine Ascorbic Acid 09/01/16 09/01/16 09/02/16 13:15 14:00 05:50 WBC RBC Hgb Hct MCV MCH MCHC RDW Plt Count MPV Neut % (Auto) Lymph % (Auto) White % (Auto) Eos % (Auto) Baso % (Auto) Absolute Neuts (auto) Absolute Lymphs (auto) Absolute Monos (auto) Absolute Eos (auto) Absolute Basos (auto) Absolute Nucleated RBC Nucleated RBC % INR (Anticoag Therapy) APTT Sodium Potassium Chloride Carbon Dioxide Anion Gap BUN Creatinine Est GFR ( Amer) Est GFR (Non-Af Amer) BUN/Creatinine Ratio Glucose Lactic Acid 0.8 Calcium Magnesium 1.7 L Total Bilirubin AST ALT Alkaline Phosphatase Troponin I C-Reactive Protein Total Protein Albumin Globulin Albumin/Globulin Ratio Lipase TSH Urine Color Elaine Urine Appearance Cloudy Urine pH 6.0 Ur Specific [place] 1.015 Urine Protein Negative Urine Ketones Trace H Urine Blood Negative Urine Nitrate Negative Urine Bilirubin Negative Urine Urobilinogen Negative Ur Leukocyte Esterase Trace H Urine WBC (Auto) 1+(6-10/hpf) H Urine RBC (Auto) Absent Ur Squamous Epith Cells Present H Urine Bacteria 1+ H Hyaline Casts Present H Urine Glucose Negative Urine Ascorbic Acid * H 09/02/16 09/02/16 05:50 05:50 WBC 10.9 H RBC 3.98 L Hgb 11.9 L Hct 36 MCV 91 MCH 30 MCHC 33 RDW 14 Plt Count 208 MPV 12 H Neut % (Auto) 75.8 Lymph % (Auto) 14.5 L White % (Auto) 8.4 Eos % (Auto) 0.8 Baso % (Auto) 0.5 Absolute Neuts (auto) 8.2 H Absolute Lymphs (auto) 1.6 Absolute Monos (auto) 0.9 H Absolute Eos (auto) 0.1 Absolute Basos (auto) 0.1 Absolute Nucleated RBC 0 Nucleated RBC % 0 INR (Anticoag Therapy) APTT Sodium 140 Potassium 3.6 Chloride 108 Carbon Dioxide 26 Anion Gap 6 BUN 7 Creatinine 0.56 Est GFR ( Amer) 140.6 Est GFR (Non-Af Amer) 109.3 BUN/Creatinine Ratio 12.5 Glucose 81 Lactic Acid Calcium 8.0 L Magnesium Total Bilirubin AST ALT Alkaline Phosphatase Troponin I C-Reactive Protein Total Protein Albumin Globulin Albumin/Globulin Ratio Lipase TSH Urine Color Urine Appearance Urine pH Ur Specific [place] Urine Protein Urine Ketones Urine Blood Urine Nitrate Urine Bilirubin Urine Urobilinogen Ur Leukocyte Esterase Urine WBC (Auto) Urine RBC (Auto) Ur Squamous Epith Cells Urine Bacteria Hyaline Casts Urine Glucose Urine Ascorbic Acid Microbiology 09/01/16 14:00 Urine Culture - Final Urine 09/01/16 14:00 Stool Gross Appearance - Final Stool Shiga Toxin I & II - Final Negative Shiga Toxin 1 & 2 Cryptosporidium/Giardia - Final Neg Cryptosporidium/Giardia 09/01/16 14:00 Stool Gross Appearance - Final Stool C. difficile DNA Amplification - Final 027 Presumptive NEGATIVE Toxigenic C.diff POSITIVE Stool Lactoferrin - Final Stool Occult Blood (JOAQUIN) - Final CTAP IMPRESSION: 1. FINDINGS MOST CONSISTENT WITH DIVERTICULITIS INVOLVING THE DISTAL TRANSVERSE COLON. THIS APPEARS SLIGHTLY MORE PROXIMAL TO THE REGION OF DIVERTICULITIS NOTED PREVIOUSLY ALTHOUGH MAY REPRESENT THE SAME AREA ASSUMING SLIGHT DIFFERENCES IN POSITIONING OF THE COLON. THIS APPEARS TO HAVE PROGRESSED SLIGHTLY FROM THE PRIOR STUDY. NO ABSCESS IS PRESENT. 2. THICKENING OF THE WALL OF THE SIGMOID COLON, UNCHANGED RECOMMEND COLONOSCOPY FOR FURTHER EVALUATION PREVIOUSLY NOTED. 3. MILD HEPATOMEGALY AND HEPATIC STEATOSIS. 4. STATUS POST GASTRIC BYPASS SURGERY, CHOLECYSTECTOMY AND HYSTERECTOMY. #Assessment: 65 year old lady with morbid obesity s/p gastric bypass Apr 2016, DM2, HTN, HL, recurrent diverticulitis presents with worsening abdominal pain and diarrhea while completing treatment with 3 weeks of Cipro/Flagyl for another flare of diverticulitis, CTAP with significant sigmoidal wall thickening/inflammation, cdiff positive and symptoms, including pain and diarrhea episodes improving on LVQN and oral vancomycin #Diverticulitis & C diff colitis -Presentation likely due to combination of the above -Would continue treatment with oral vancomycin to complete 14 day course and stop LVQN, given her increased ab pain/diarrheal episodes reflect cdiff colitis more so that diverticular flare and symptoms now improving -Monitor for diarrheal episodes, trend fever and WBC curve while in-house -If febrile or worsening symptoms may need to add abx back -Appreciate surgical consult, no indication as no visible abscess on CTAP Thank you for this consult Discussed with Dr. Kalani Brito PGY-2 Internal Medicine/Infectious Disease Consult <Kalani DREW,Reilly Le - Last Filed: 09/02/16 12:35> Infectious Disease Note SOAP: Patient interviewed and examined by me; seen and discussed with Dr Brito. I agree with her full note above. Imp/Rec: Abd pain, frequent watery diarrhea, leukocytosis on antibiotics due to Cdif colitis. Her previous diverticular symptoms had nearly resolved when these symptoms developed while still on cipro/flagyl so I think less likely onoing diverticulitis. Continue PO vanco and DC flagyl/levaquin (ordered), monitor symptoms closely.
[2016-09-02] MEDS ORDERED: Heparin VIAL(*) 5000 UNITS/ML VIAL (FIVE THOUSAND) SUBCUT SCH (14:00)
[2016-09-02 14:43] LABS: Hematocrit 38 % (35-47); Hemoglobin 12.2 g/dl (12.0-16.0)
[2016-09-02] MEDS: Pantoprazole IV* 40 MG IV SCH (17:27)
[2016-09-02 20:28] LABS: Hematocrit 39 % (35-47); Hemoglobin 12.6 g/dl (12.0-16.0)
[2016-09-03 03:11] LABS: Hematocrit 36 % (35-47); Hemoglobin 11.7 g/dl (12.0-16.0)
[2016-09-03 03:26] LABS: BUN/Creatinine Ratio 14.5 (8-20); Calcium 8.4 mg/dL (8.6-10.3); EGFR African American 143.6 (>60); EGFR Non-African American 111.6 (>60); Potassium 3.5 mmol/L (3.5-5.0)
[2016-09-03 04:53] VITALS: BP 130/55
--- NOTE | 2016-09-03 08:19 | PN ---
Subjective Date of Service: 09/03/16 Interval History: Pt is feeling well. She states she had less frequent BMs starting last evening. She has gone once this AM and states the consistency was that of pudding ( improved from prior). She denies any abdominal pain. She states she had been having a small amount of BRBPR in her stool but she had none this AM. She wants to go home. Objective Active Medications: Gabapentin (Neurontin Cap(*)) 300 mg PO BID [facility] Last Admin: 09/02/16 21:04 Dose: 300 mg Potassium Chloride/Sodium Chloride (Ns 0.9% W/ 40 Meq Kcl 1000 Ml*) 1,000 mls @ 125 mls/hr IV PER RATE [facility] Last Admin: 09/02/16 05:55 Dose: 125 mls/hr Oxybutynin Chloride (Ditropan Xl Tab*) 10 mg PO QAM [facility] Last Admin: 09/02/16 09:58 Dose: 10 mg Pantoprazole Sodium (Protonix Iv*) 40 mg IV Q24H [facility] Last Admin: 09/02/16 17:27 Dose: 40 mg Prochlorperazine Edisylate (Compazine Inj*) 5 mg IV Q6H PRN PRN Reason: NAUSEA/VOMITING Sertraline HCl (Zoloft*) 50 mg PO MoWeFr@0900 [facility] Last Admin: 09/02/16 09:58 Dose: 50 mg Vancomycin HCl (Vancomycin Cap*) 125 mg PO QID [facility] Last Admin: 09/02/16 21:06 Dose: 125 mg Vital Signs 09/02/16 09/02/16 09/02/16 09:58 11:58 12:59 Temperature 98.0 F Pulse Rate 64 Respiratory 16 16 16 Rate Blood Pressure 158/79 (mmHg) O2 Sat by Pulse 95 Oximetry 09/02/16 09/02/16 09/02/16 15:45 16:04 17:02 Temperature 97.5 F Pulse Rate 60 Respiratory 16 Rate Blood Pressure 94/42 111/42 (mmHg) O2 Sat by Pulse 87 94 Oximetry 09/02/16 09/02/16 09/02/16 19:10 21:04 23:04 Temperature Pulse Rate Respiratory 18 16 18 Rate Blood Pressure (mmHg) O2 Sat by Pulse Oximetry 05/16/17 05/16/17 05/16/17 00:25 04:36 07:25 Temperature 98.0 F 97.9 F Pulse Rate 58 62 Respiratory 16 16 16 Rate Blood Pressure 121/48 130/55 (mmHg) O2 Sat by Pulse 94 96 Oximetry Oxygen Devices in Use Now: None Appearance: Middle aged obese female sitting on the edge of the bed eating breakfast, NAD Eyes: No Scleral Icterus Ears/Nose/Mouth/Throat: Mucous Membranes Moist Respiratory: Symmetrical Chest Expansion and Respiratory Effort, Clear to Auscultation Cardiovascular: NL Sounds; No Murmurs; No JVD, RRR, No Edema Abdominal: NL Sounds; No Tenderness; No Distention Extremities: No Clubbing, Cyanosis Skin: No Rash or Ulcers, No Nodules or Sclerosis Neurological: Alert and Oriented x 3 Result Diagrams: 09/03/16 02:53 09/03/16 02:53 Additional Lab and Data: Lab Results 09/01/16 09/01/16 09/01/16 Range/Units 13:15 13:15 13:15 WBC 17.5 H (3.5-10.8) 10^3/ul RBC 4.92 (4.0-5.4) 10^6/ul Hgb 14.5 (12.0-16.0) g/dl Hct 44 (35-47) % MCV 90 (80-97) fL MCH 30 (27-31) pg MCHC 33 (31-36) g/dl RDW 14 (10.5-15) % Plt Count 263 (150-450) 10^3/ul MPV 11 H (7.4-10.4) um3 Neut % (Auto) 82.8 (38-83) % Lymph % (Auto) 9.4 L (25-47) % [place] % (Auto) 6.9 (1-9) % Eos % (Auto) 0.5 (0-6) % Baso % (Auto) 0.4 (0-2) % Absolute Neuts (auto) 14.5 H (1.5-7.7) 10^3/ul Absolute Lymphs (auto) 1.6 (1.0-4.8) 10^3/ul Absolute Monos (auto) 1.2 H (0-0.8) 10^3/ul Absolute Eos (auto) 0.1 (0-0.6) 10^3/ul Absolute Basos (auto) 0.1 (0-0.2) 10^3/ul Absolute Nucleated RBC 0.01 10^3/ul Nucleated RBC % 0.1 INR (Anticoag Therapy) 1.09 (0.89-1.11) APTT 33.4 (26.0-36.3) seconds Sodium 140 (133-145) mmol/L Potassium 2.7 L* (3.5-5.0) mmol/L Chloride 102 (101-111) mmol/L Carbon Dioxide 26 (22-32) mmol/L Anion Gap 12 H (2-11) mmol/L BUN 9 (6-24) mg/dL Creatinine 0.61 (0.51-0.95) mg/dL Est GFR ( Amer) 127.4 (>60) Est GFR (Non-Af Amer) 99.1 (>60) BUN/Creatinine Ratio 14.8 (8-20) Glucose 84 (70-100) mg/dL Lactic Acid (0.5-2.0) mmol/L Calcium 9.4 (8.6-10.3) mg/dL Magnesium 1.6 L (1.9-2.7) mg/dL Total Bilirubin 0.50 (0.2-1.0) mg/dL AST 18 (13-39) U/L ALT 11 (7-52) U/L Alkaline Phosphatase 90 (34-104) U/L Troponin I 0.01 (<0.04) ng/mL C-Reactive Protein 26.65 H (< 5.00) mg/L Total Protein 7.5 (6.4-8.9) g/dL Albumin 3.4 (3.2-5.2) g/dL Globulin 4.1 H (2-4) g/dL Albumin/Globulin Ratio 0.8 L (1-3) Lipase 10 L (11.0-82.0) U/L TSH 1.04 (0.34-5.60) mcIU/mL Urine Color Urine Appearance Urine pH (5-9) Ur Specific [place] (1.010-1.030) Urine Protein (Negative) Urine Ketones (Negative) Urine Blood (Negative) Urine Nitrate (Negative) Urine Bilirubin (Negative) Urine Urobilinogen (Negative) Ur Leukocyte Esterase (Negative) Urine WBC (Auto) (Absent) Urine RBC (Auto) (Absent) Ur Squamous Epith Cells (Absent) Urine Bacteria (Absent) Hyaline Casts (Absent) Urine Glucose (Negative) Urine Ascorbic Acid (Negative) 09/01/16 09/01/16 Range/Units 13:15 14:00 WBC (3.5-10.8) 10^3/ul RBC (4.0-5.4) 10^6/ul Hgb (12.0-16.0) g/dl Hct (35-47) % MCV (80-97) fL MCH (27-31) pg MCHC (31-36) g/dl RDW (10.5-15) % Plt Count (150-450) 10^3/ul MPV (7.4-10.4) um3 Neut % (Auto) (38-83) % Lymph % (Auto) (25-47) % Bacon % (Auto) (1-9) % Eos % (Auto) (0-6) % Baso % (Auto) (0-2) % Absolute Neuts (auto) (1.5-7.7) 10^3/ul Absolute Lymphs (auto) (1.0-4.8) 10^3/ul Absolute Monos (auto) (0-0.8) 10^3/ul Absolute Eos (auto) (0-0.6) 10^3/ul Absolute Basos (auto) (0-0.2) 10^3/ul Absolute Nucleated RBC 10^3/ul Nucleated RBC % INR (Anticoag Therapy) (0.89-1.11) APTT (26.0-36.3) seconds Sodium (133-145) mmol/L Potassium (3.5-5.0) mmol/L Chloride (101-111) mmol/L Carbon Dioxide (22-32) mmol/L Anion Gap (2-11) mmol/L BUN (6-24) mg/dL Creatinine (0.51-0.95) mg/dL Est GFR ( Amer) (>60) Est GFR (Non-Af Amer) (>60) BUN/Creatinine Ratio (8-20) Glucose (70-100) mg/dL Lactic Acid 0.8 (0.5-2.0) mmol/L Calcium (8.6-10.3) mg/dL Magnesium (1.9-2.7) mg/dL Total Bilirubin (0.2-1.0) mg/dL AST (13-39) U/L ALT (7-52) U/L Alkaline Phosphatase (34-104) U/L Troponin I (<0.04) ng/mL C-Reactive Protein (< 5.00) mg/L Total Protein (6.4-8.9) g/dL Albumin (3.2-5.2) g/dL Globulin (2-4) g/dL Albumin/Globulin Ratio (1-3) Lipase (11.0-82.0) U/L TSH (0.34-5.60) mcIU/mL Urine Color Elaine Urine Appearance Cloudy Urine pH 6.0 (5-9) Ur Specific [place] 1.015 (1.010-1.030) Urine Protein Negative (Negative) Urine Ketones Trace H (Negative) Urine Blood Negative (Negative) Urine Nitrate Negative (Negative) Urine Bilirubin Negative (Negative) Urine Urobilinogen Negative (Negative) Ur Leukocyte Esterase Trace H (Negative) Urine WBC (Auto) 1+(6-10/hpf) H (Absent) Urine RBC (Auto) Absent (Absent) Ur Squamous Epith Cells Present H (Absent) Urine Bacteria 1+ H (Absent) Hyaline Casts Present H (Absent) Urine Glucose Negative (Negative) Urine Ascorbic Acid * H (Negative) Assess/Plan/Problems-Billing Ms Martinez is a 65yo female with a h/o gastric bypass 04/2016 and history of recurrent diverticulitis who presented to the ER with c/o abdominal pain, N/V, frequent diarrhea and was found to be positive for c. diff and possible persistent/worsening diverticulitis. - Patient Problems (1) BRBPR (bright red blood per rectum) Current Visit: Yes Status: Acute Code(s): K62.5 - HEMORRHAGE OF ANUS AND RECTUM SNOMED Code(s): 460194037 Comment: The patient had been having small amounts of blood in her stool. I suspect secondary to the marked colonic inflammation seen on CT scan. H/H has remained relatively stable. She states she had no blood in her stool today. Will ask that she get a follow up H/H on 09/05/16 to ensure her H/H is stable. She states she has a follow up appt with her GI doctor next week. (2) C. difficile colitis Current Visit: Yes Status: Acute Comment: The patient has improved on oral vancomycin. Her frequency of stooling is much less and the consistency of the stool is improved. Will continue the vancomycin for 14 days total. 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 (3) Diverticulitis Current Visit: Yes Status: Acute Comment: Unlikely that the worsening of her symptoms that brought her in was worsening diverticulitis but more likely C difficile colitis. All Abx except oral vanco have been stopped. She will monitor her symptoms and return to the ER if she has any worsening abdominal pain or diarrhea. (4) Depression Current Visit: Yes Status: Acute Code(s): F32.9 - MAJOR DEPRESSIVE DISORDER , SINGLE EPISODE, UNSPECIFIED SNOMED Code(s): 20095269 Comment: Continue zoloft. (5) DVT prophylaxis Current Visit: Yes Status: Acute Code(s): OXH9060 - SNOMED Code(s): 539820433 Comment: SQ heparin (6) Full code status Current Visit: Yes Status: Acute Code(s): Z78.9 - OTHER SPECIFIED HEALTH STATUS SNOMED Code(s): 555829158 Status and Disposition: d/c home
[2016-09-03] MEDS: Oxybutynin XL TAB* 5 MG PO SCH (08:21)
[2016-09-03] MEDS: Gabapentin CAP(*) 300 MG PO SCH (08:22)
[2016-09-03] MEDS: Vancomycin CAP* 125 MG CAP PO SCH (08:22)
--- NOTE | 2016-09-04 03:38 | DS ---
DISCHARGE SUMMARY: DATE OF ADMISSION: 09/01/16 DATE OF DISCHARGE: 09/03/16 PRIMARY CARE PROVIDER: Dr. Agueda Hudson. PRINCIPAL DIAGNOSIS: C. difficile colitis. SECONDARY DIAGNOSES: 1. Morbid obesity, status post Paul-en-Y gastric bypass in April 2016. 2. Type 2 diabetes. 3. Hypertension. 4. Gastroesophageal reflux disease. 5. Hyperlipidemia. 6. History of recurrent diverticulitis. 7. Obstructive sleep apnea. DISCHARGE MEDICATIONS: 1. Crestor 20 mg p.o. q.h.s. 2. [place] gummies 1 chew p.o. daily. 3. Vitamin D 1000 units p.o. daily. 4. Sertraline 50 mg p.o. Friday, Friday, Friday. 5. Protonix 40 mg p.o. daily. 6. Oxybutynin XL 10 mg p.o. daily. 7. Mirabegron 25 mg p.o. daily. 8. Indomethacin 50 mg p.o. 4 times a day p.r.n. pain. 9. Estradiol cream 1 application vaginal 3 times weekly. 10. Gabapentin 300 mg p.o. b.i.d. 11. Vitamin B12 500 mcg p.o. daily. 12. Calcium citrate 200 mg p.o. b.i.d. 13. Tylenol 650 mg p.o. q.8 hours p.r.n. pain. 14. Vancomycin 125 mg p.o. 4 times a day x13 days. HOSPITAL COURSE: Ms. Martinez is a 65-year-old female who underwent gastric bypass from April 2016 and had been doing relatively well up until a few weeks ago when she was diagnosed with diverticulitis. The patient was started on treatment for this initially and improved however. For the 4 days prior to admission, she had been having nausea, vomiting, and much worse diarrhea. The patient was having incredibly frequent bowel movements possibly up to 40 times per day. The patient presented to the emergency room, where she was worked up with CT abdomen and pelvis, which revealed findings most consistent with diverticulitis involving the distal transverse colon that appears slightly more proximal to the region of diverticulitis noted previously, although may represent same area assuming slight differences in positioning of the colon. Appears to progress slightly from the prior study. No abscess was present. Additionally, the patient's stool is sent for C. diff evaluation and came back positive. The patient was seen by General Surgery, who felt that the patient's diagnosis was likely just C. difficile colitis and had no signs of acute abdomen or surgical indication at that time and therefore was to be managed just with antibiotics. The patient was also seen in consultation by Dr. Uriarte, who felt the patient's symptoms were most consistent again with C. difficile colitis. She was changed from IV Flagyl to oral vancomycin and we will complete a 14-day course of this. On 09/03/16, the patient had marked improvement in her bowel movements. She had gone once at the time of my evaluation and states that the consistency of the stool is much improved. The patient was very anxious to be discharged home. Of note, the patient was having blood in her stool earlier on during this course. However, she states there was no blood in the stool on the day of discharge. Her hemoglobin did drop slightly on the day of discharge from 12.6 a day prior to 11.7. The patient will have a followup H and H on 09/05/16. At this point, the patient is stable for discharge home. FOLLOWUP CONCERNS: The patient is being discharged home today, 09/03/16. She is to follow up with Dr. Hudson on 09/09/16 at 9:30 a.m. ACTIVITY LEVEL: As tolerated. DIET: Regular. CONDITION ON DISCHARGE: Stable. Again, the patient is to have a CBC on 09/05/16. TIME SEEN: 35 minutes were spent discharging this patient. CC: Dr. Sebastian; Dr. Hudson* [id number]/[facility] #: [id number] [facility]
== END 2016-09-03 09:20 | disposition home or self-care (01) | DRG 372 ==
LOC: ED 12:05 → MEDTELE 15:54
PROVIDERS: ADMIT Internal Medicine; ATTEND Hospitalist
DX: A04.7 Enterocolitis due to Clostridium difficile (principal); K57.32 Diverticulitis of large intestine without perforation or abscess without bleeding; E83.42 Hypomagnesemia; I10 Essential (primary) hypertension; E11.9 Type 2 diabetes mellitus without complications; K21.9 Gastro-esophageal reflux disease without esophagitis; E78.5 Hyperlipidemia, unspecified; G47.33 Obstructive sleep apnea (adult) (pediatric); E87.6 Hypokalemia; F32.9 Major depressive disorder, single episode, unspecified; M19.019 Primary osteoarthritis, unspecified shoulder; Z79.899 Other long term (current) drug therapy; Z98.84 Bariatric surgery status; Z88.1 Allergy status to other antibiotic agents; Z88.5 Allergy status to narcotic agent; Z88.0 Allergy status to penicillin; Z88.2 Allergy status to sulfonamides; Z88.8 Allergy status to other drugs, medicaments and biological substances; Z80.0 Family history of malignant neoplasm of digestive organs; Z83.79 Family history of other diseases of the digestive system; Z87.891 Personal history of nicotine dependence
CPT/HCPCS: 36415; 74177; 80048; 80053; 81003; 81015; 82270; 83605; 83630; 83690; 83735; 84443; 84484; 85014; 85018; 85025; 85610; 85730; 86140; 87045; 87046; 87086; 87328; 87329; 87493; 87899; 93005; A9270-GY; J1644; J1956; J2270; J2405; Q9967